=== PATIENT | female | born 1940 | race Caucasian/White ===

== ENCOUNTER 2017-03-13 09:58 | Outpatient (CLI) | payer MEDICARE, BC ==
--- NOTE | 2017-03-13 11:55 | RAD ---
CHEST TWO VIEWS: History: Chest pain. Comparison: 09-27-13 FINDINGS: Since the previous comparison there has been cardiac surgery. No focal airspace consolidation, pneumo thorax, or effusion. Mild degenerative changes of the shoulder joints. Right upper quadrant chest all clips. IMPRESSION: No acute intrathoracic abnormality. POS: [facility]
== END 2017-03-13 09:59 | disposition home or self-care (01) ==
LOC: RAD 09:58
PROVIDERS: ATTEND Internal Medicine Cardiovascular Disease
DX: I25.119 Atherosclerotic heart disease of native coronary artery with unspecified angina pectoris (principal); R07.9 Chest pain, unspecified; Z95.1 Presence of aortocoronary bypass graft
CPT/HCPCS: 71020

== ENCOUNTER 2017-03-23 11:31 | Observation (INO) | payer MEDICARE, BC ==
--- NOTE | 2017-03-23 12:26 | RAD ---
PORTABLE UPRIGHT FRONTAL CHEST RADIOGRAPH: 03/23/2017 HISTORY: Intermittent chest pain. COMPARISON: 09/27/2013 and 03/13/2017 FINDINGS: Stable heart and mediastinal contours. Midline sternotomy wires and mediastinal clips are present. No pneumothorax or pleural fluid. No focal consolidation or alveolar edema. Mild elevation of left hemidiaphragm, stable. IMPRESSION: No acute findings. Stable appearance of the chest. POS: [facility]
[2017-03-23 12:41] LABS: #Eosinphils 0.2 thou/uL (0.0-0.7); #Lymphocytes 1.1 thou/uL (1.20-3.40); #Monocytes 0.4 thou/uL (0.11-0.59); #Neutrophils 2.7 thou/uL (1.40-6.50); %Basophils 0.6 % (0.0-1.0); %Eosinophils 4.3 % (0.0-10.0); %Lymphocytes 24.8 % (21.0-51.0); %Monocytes 9.5 % (0.0-10.0); %Neutrophils 60.7 % (42.0-75.0); Hemoglobin 14.1 g/dL (12.0-16.0); Mean Corpuscular HGB CONC 33.6 g/dL (32.0-36.0); Mean Corpuscular Hemoglobin 34.5 pg (27.0-31.0); Mean Platelet Volume 6.9 fL (7.4-10.4); Platelet Count 210 thou/uL (130-400); RBC Distribution Width 13.2 % (11.5-14.5); Red Blood Cell (RBC) Count 4.09 mill/uL (4.20-5.40); White Blood Cell (WBC) Count 4.5 thou/uL (4.8-10.8)
[2017-03-23 13:01] LABS: ALT (SGPT) 13 U/L (8-55); AST (SGOT) 16 U/L (5-34); Albumin 3.7 g/dL (3.4-4.8); Alkaline Phosphatase 54 U/L (40-150); Anion Gap 10 mmol/L (10-20); BUN (Urea Nitrogen) 22 mg/dL (9.8-20.1); Bilirubin, Total 0.8 mg/dL (0.2-1.2); CK (CPK) 34 U/L (29-168); Calc. Creatinine Clearance 0 mL/min (70-130); Calcium 9.1 mg/dL (7.8-10.44); Carbon Dioxide 30 mmol/L (23-31); Chloride 103 mmol/L (98-107); Estimated GFR-MDRD 66; Globulin 2.7 g/dL (2.4-3.5); Glucose 87 mg/dL (83-110); Lipase 44 U/L (8-78); Potassium 4.2 mmol/L (3.5-5.1); Protein, Total 6.4 g/dL (6.0-8.3); Sodium 139 mmol/L (136-145)
[2017-03-23 13:05] LABS: Troponin I Less than 0.010 ng/mL (< 0.028)
[2017-03-23] MEDS ORDERED: Nitroglycerin 2% Ointment 1 INCH/1 GM Packet ONE (13:13)
[2017-03-23] MEDS ORDERED: Morphine 4 MG/ML VIAL ONE (13:15)
[2017-03-23] MEDS ORDERED: Acetaminophen 325 MG TAB PO PRN (15:38)
[2017-03-23 15:55] LABS: Troponin I Less than 0.010 ng/mL (< 0.028)
--- NOTE | 2017-03-23 17:10 | HP ---
PRIMARY CARE PROVIDER: Ethan Gardner M.D. CHIEF COMPLAINT: Chest pain. HISTORY OF PRESENT ILLNESS: Mr. Villafana is a pleasant 76-year-old lady who was seen at [facility] on 03/23/2017. She reports that she developed left-sided chest pain this morning. The pain was tightness like, 9/10 at its worst, radiating to upper back, neck, jawline and left arm, accompanied by nausea and shortne ss of breath. No known aggravating or relieving factors. She reports that she had recurrence of the pain during the daytime as well, not as severe. REVIEW OF SYSTEMS: The following complete review of systems was negative, unless otherwise mentioned in the HPI or below: Constitutional: Weight loss or gain, sense of well-being, ability to conduct usual activities, exerc ise tolerance. Skin/Breast: Rash, itching, changes in hair growth or loss, nail changes, breast lumps, tenderness, swelling, nipple discharge. Eyes: Vision, double vision, tearing, blind spots, pain. ENT/Mouth: Headaches (location, time of onset, duration, precipitating factors), vertigo, lightheade dness, injury. Vision, double vision, tearing, blind spots, pain, nose bleeding, colds, obstruction, discharge, dental difficulties, gingival bleeding, dentures, neck stiffness, pain, tenderness, masses in thyroid or other areas. Cardiovascular: Precordial pain, substernal distress, palpitations, syncope, dyspnea on exertion, or thopnea, nocturnal paroxysmal dyspnea, edema, cyanosis, hypertension, heart murmurs, varicosities, ph lebitis, claudication. Respiratory: Pain, shortness of breath, wheezing, stridor, cough, hemoptysis, fever or night sweats Gastrointestinal: Poor appetite, dysphagia, indigestion, abdominal pain, heartburn, eructation, naus ea, vomiting, hematemesis, jaundice, constipation, or diarrhea, abnormal stools (joe-colored, tarry, bloody, greasy, foul smelling), flatulence, hemorrhoids, recent changes in bowel habits. Genitourinary: Urgency, frequency, dysuria, nocturia, hematuria, polyuria, oliguria, unusual (or wilton nge in) color of urine, stones, hesitancy, change in size of stream, dribbling, acute retention or in continence, libido, potency. Musculoskeletal: Pain, swelling, redness or heat of muscles or joints, limitation, of motion, muscul ar weakness, atrophy, cramps. Neurologic/Psychiatric: Convulsions, paralyses, tremor, incoordination, paraesthesias, difficulties with memory of speech, sensory or motor disturbances, or muscular coordination (ataxia, tremor), emot ional problems, anxiety, depression, previous psychiatric care, unusual perceptions, hallucinations. Allergy/Immunologic: Skin rash, anemia, bleeding tendency, polydipsia, polyuria, intolerance to heat or cold. PAST MEDICAL HISTORY: Significant for coronary artery disease, status post coronary artery bypass gr aft in 03/2016. She reports having 3 coronary angiograms in 2017 and is known to have a vascular les ion that she is not amenable to correction with PCI. She also has a history of dyslipidemia. Rheuma toid arthritis. PAST SURGICAL HISTORY: Significant for coronary artery bypass graft x3, kidney stone removal, back s urgery, right wrist surgery, cataract surgery, cholecystectomy, hysterectomy, and tonsillectomy. SOCIAL HISTORY: The patient denies tobacco use. She reports having a glass of wine with dinner ever y night. FAMILY HISTORY: Significant for coronary artery disease in her mother. ALLERGIES: LEFLUNOMIDE. CURRENT MEDICATIONS: Duloxetine 30 mg daily, potassium chloride 10 mEq daily, Plavix 75 mg daily, Ra nexa 1000 mg 2 times a day, furosemide 40 mg 2 times a day, carvedilol 3.125 mg 2 times a day, Restas is eyedrops, gabapentin 300 mg 2 times a day, folic acid 1 mg at bedtime, atorvastatin 40 mg at bedti me, aspirin 81 mg daily, amlodipine 2.5 mg daily, Nexium 40 mg daily, methotrexate 25 mg every week, nitroglycerin p.r.n., Tessalon Perles p.r.n. CODE STATUS: I discussed her code status. She is FULL CODE. PHYSICAL EXAMINATION: GENERAL: On examination, Ms. Villafana is awake and alert, not in acute distress. VITAL SIGNS: Blood pressure is 120/60, pulse is 61. She is breathing at rate of 12 and saturating 9 5% on room air. She is afebrile. EYES: No scleral icterus. No conjunctival pallor. ENT: Moist mucosal membranes. No oropharyngeal erythema or exudates. NECK: Supple, nontender, normal range of movement. Trachea is midline. RESPIRATORY: Accessory muscles of breathing are not active. Chest wall movements are symmetric bila terally. LUNGS: Clear to auscultation without wheeze, rhonchi or crepitations. CARDIOVASCULAR: S1 and S2 are heard, regular. LUNGS: Peripheral pulses are palpable. No carotid bruit, no pericardial rub. ABDOMEN: Soft, nontender. Bowel sounds heard, no hepatomegaly, no splenomegaly. NEUROLOGIC: Cranial nerves II-XII are intact. Deep tendon reflexes are 2+. MUSCULOSKELETAL: Power is 5/5 in all 4 extremities. Normal range of movement at all major extremity joints. SKIN: No rashes or subcutaneous nodules. LYMPHATIC: No cervical lymphadenopathy. PSYCHIATRIC: Normal mood, normal affect, patient is oriented to person, place, and time. IMAGING DATA AND LABORATORY DATA: Ms. Villafana's labs and investigations were reviewed. I reviewed her electrocardiogram, which shows normal sinus rhythm, no ST changes to suggest an acute coronary syndr ome. I also reviewed her chest x-ray, which does not show any pulmonary infiltrates. Laboratory inv estigations show leukopenia with 4,500 white cells, normal hemoglobin, normal platelet count, mildly elevated blood urea nitrogen of 22, otherwise unremarkable comprehensive metabolic profile, mildly el evated BNP of 118, troponin I that is negative x2 and normal lipase. ASSESSMENT AND PLAN: Ms. Villafana is a pleasant 76-year-old lady who was seen at [facility]. Her problem list includes: 1. Chest pain: She is known to have coronary artery lesions that are not amenable to PCI. Emergenc y room physician has discussed her case with her director, who has kindly seen the patient in the emergency room. The recommendations are to check total of 3 sets of troponin and if negative, mikey lozada can be discharged home to follow up with her primary care physician. The third troponin I is pend ing. 2. Dyslipidemia: Continue statin. 3. Leukopenia: Etiology is unclear. Her baseline white count is not known at this time. This coul d be secondary to methotrexate use. She needs to follow up with her primary care physician. 4. Elevated blood urea nitrogen: Etiology unclear. Patient is not clinically dehydrated. This dada l need to be followed up as outpatient. Many thanks for allowing me to participate in your patient's care. Please feel free to contact me wi th any questions or concerns. LEVEL OF RISK: High. LEVEL OF COMPLEXITY: High.
[2017-03-23 19:09] LABS: Troponin I 0.016 ng/mL (< 0.028)
--- NOTE | 2017-03-23 22:18 | CON ---
DATE OF CONSULTATION: 03/23/2017 REASON FOR CONSULTATION: Chest pain. HISTORY OF PRESENT ILLNESS: Ms. Villafana is a very pleasant 76-year-old white female who comes to the [facility] for chest pain. She has significant history of coronary artery disease last year in 03/2016. She came in for increased shortness of breath which is the way she feels with her angina, shortness of breath with exertion. She underwent heart catheterization which showed that she had an occluded RCA and severe left main disease and at that time, she actually presented to the hospital for an IN. She had her left circumflex balloon opened and sent to bypass surgery emergently. She received thre e grafts to the left side. No graft was placed in right coronary artery as it was very small and unr eachable. She continued to have chest pain. She was seeing Dr. Roger at that time and because of t he possibility for having angina from the right artery, she had a repeat catheterization that showed that all her vein grafts were widely patent and attempt at CT of the RCA was done without success. S he was maxed out on all her anti-anginals with really no change in any of her symptoms. She came to see me about a week and a half to 2 weeks ago, she was looking for a different opinion as far as her chest pain is concerned. On my evaluation, my thought is that the way she feels her angina is with s hortness of breath with exertion which is what she felt before her bypass. I also feel that most of her pain is related to chest wall pain that she is exquisitely tender at any palpation soft or hard o n her chest wall and this may just all be related to neuralgia post-bypass surgery. She was started on gabapentin 300 mg twice a day. She states that her pain changed a little bit, it was not really s ignificantly different than what has been before. She usually has episodes where the pain slowly terrance s up and gets to a point where she needs to come in, this time it just hit her at once, she says it i s exactly the same pain that she had in the past, however, without the ramping up. She came in, so f ar, she has been ruled out with 1 set of enzymes and an unremarkable EKG. She currently has no more pain. She is quite comfortable with very stable vital signs. PAST MEDICAL HISTORY: 1. Coronary artery disease as above. 2. Hyperlipidemia. 3. Rheumatoid arthritis. PAST SURGICAL HISTORY: 1. Coronary artery bypass grafting x3 as above. 2. Attempted PCI of the RCA and successful. OUTPATIENT MEDICATIONS: 1. Duloxetine 30 mg a day. 2. Plavix 75 mg a day. 3. Ranexa 1000 mg b.i.d. 4. Furosemide 40 mg a day. 5. Carvedilol 3.125 mg b.i.d. 6. 5 mg b.i.d. 7. Folic acid daily. 8. Atorvastatin 40 mg at bedtime. 9. Aspirin 81 a day. 10. Amlodipine 2.5 mg a day. 11. Nexium 40 mg a day. 12. Methotrexate 25 mg injection three times a week. 13. Gabapentin 300 mg twice a day. ALLERGIES: No known drug allergies. SOCIAL HISTORY: No alcohol, tobacco or drugs. FAMILY HISTORY: Noncontributory. REVIEW OF SYSTEMS: A 12-point review of systems was done and is all negative unless stated in the hi story of present illness. PHYSICAL EXAMINATION: VITAL SIGNS: Temperature 97.2, pulse 68, respiration rate 16, satting 98% on room air, blood pressur e 122/68. GENERAL: Awake, alert, oriented x3, in no distress. HEENT: Normocephalic, atraumatic. NECK: Supple. LUNGS: Clear to auscultation. CARDIOVASCULAR: S1, S2, no S3 or S4, no murmurs or rubs. ABDOMEN: Soft, positive bowel sounds. EXTREMITIES: No edema. SKIN: Warm and dry. LABORATORY WORK: Reviewed. CBC shows a white count of 4.5, hemoglobin of 14, platelet count of 210. Chemistries are unremarkable except for BUN of 22, creatinine 0.83, troponin is normal x1 and less than assay actually, and a BNP of 118, albumin of 3.7. Lipase was 44. EKG is unremarkable. ASSESSMENT AND PLAN: 1. Chest pain: Most likely continuation of her chest wall pain. She will get completely ruled out with two more sets of enzymes. If these are negative, she should be able to be discharged home. I w ill plan on increasing her gabapentin to 600 mg 3 times a day from 300 twice a day. I already gave a prescription for this. Her will go and get at a local pharmacy. 2. Coronary artery disease: Unlikely this is an acute coronary syndrome. As above. Thank you for letting us to participate in the care of your patient. We will sign off. She has a scheduled followup appointment with us in 04/14/2016. We will keep this.
--- NOTE | 2017-03-24 00:48 | DIS ---
DATE OF ADMISSION: 03/23/2017 DATE OF DISCHARGE: 03/23/2017 PRIMARY CARE PROVIDER: Dr. Ethan Gardner. DISCHARGE DIAGNOSIS: Chest pain. HOSPITAL COURSE: Ms. Villafana is a pleasant 76-year-old lady, who was admitted to [facility] on observation status on 03/23/2017. She was seen by Cardiology Service. It was advise d that 3 sets of cardiac enzymes be checked and if normal, all 3 troponins were normal. Her chest pa in resolved as well. She is being discharged home in a stable condition and advised to follow up wit h her primary care provider. She is advised to resume her preadmission home medications. Many thanks for allowing me to participate in your patient's care. Please feel free to contact me wi th any questions or concerns. DISCHARGE DESTINATION: Home.
--- NOTE | 2017-03-24 13:27 | EKG ---
Test Reason : CHEST PAIN Blood Pressure : / mmHG Vent. Rate : 060 BPM Atrial Rate : 060 BPM P-R Int : 154 ms QRS Dur : 096 ms QT Int : 448 ms P-R-T Axes : 025 -18 083 degrees QTc Int : 448 ms Normal sinus rhythm Inferior infarct , age undetermined Abnormal ECG Confirmed by DYLAN RAM ([id number]), multimedia editor JELENA RAMEY ([id number]) on 03/24/2017 1:27:15 PM Referred By: Confirmed By:DYLAN RAM
== END 2017-03-23 20:07 | disposition home or self-care (01) ==
LOC: ERS 11:31 → ERHOLD 15:00
PROVIDERS: ADMIT Internal Medicine; ATTEND Internal Medicine
DX: R07.89 Other chest pain (principal); I25.10 Atherosclerotic heart disease of native coronary artery without angina pectoris; E78.5 Hyperlipidemia, unspecified; D72.819 Decreased white blood cell count, unspecified; R79.89 Other specified abnormal findings of blood chemistry; Z88.8 Allergy status to other drugs, medicaments and biological substances; Z79.899 Other long term (current) drug therapy; Z95.1 Presence of aortocoronary bypass graft; Z90.49 Acquired absence of other specified parts of digestive tract; Z98.890 Other specified postprocedural states; Z82.49 Family history of ischemic heart disease and other diseases of the circulatory system
CPT/HCPCS: 36415; 71010; 80053; 82553; 83690; 83880; 84484; 85025; 93005; 94760; 96374; J2270

== ENCOUNTER 2017-06-01 08:45 | Outpatient (CLI) | payer MEDICARE, BC ==
--- NOTE | 2017-06-02 11:38 | NM ---
NUCLEAR MEDICINE VIABILITY STUDY OF THE HEART: HISTORY: This is a 76-year-old female with prior myocardial infarction. Evaluate for viability of the myocard ium. FINDINGS: A rest study was performed. Images were taken at 15 minutes after injection of radiopharmaceutical a nd at 24 hours, to evaluate for redistribution of the radiopharmaceutical, to suggest viability. There is decreased uptake of the radiopharmaceutical along the lateral wall, consistent with a prior area of myocardial infarction. No significant redistribution of the radiopharmaceutical is seen in t his location on the 24-hour images. IMPRESSION: The lateral wall defect is secondary to prior myocardial infarction. No significant redistribution o f the radiopharmaceutical is seen to suggest viability of the tissue in this lateral wall. POS: [facility]
== END 2017-06-01 08:46 | disposition home or self-care (01) ==
LOC: NM 08:45
PROVIDERS: ATTEND Internal Medicine Cardiovascular Disease
DX: I25.119 Atherosclerotic heart disease of native coronary artery with unspecified angina pectoris (principal); I25.2 Old myocardial infarction; Z95.1 Presence of aortocoronary bypass graft
CPT/HCPCS: 78466; A9505

== ENCOUNTER 2017-07-30 04:35 | Inpatient (IN) | payer MEDICARE, BC ==
[2017-07-30 06:57] VITALS: BMI 31.4
[2017-07-30] MEDS ORDERED: Ondansetron HCl/PF 4 MG/2 ML Vial IVP PRN (07:48)
[2017-07-30] MEDS ORDERED: HYDROcodone/Acetaminophen 5/325 mg Tablet PO PRN (07:48)
[2017-07-30] MEDS ORDERED: Acetaminophen 325 MG TAB PO PRN (07:48)
[2017-07-30] MEDS ORDERED: Nitroglycerin 0.4 MG TAB (25 Tab Bottle) PO PRN (07:48)
[2017-07-30] MEDS ORDERED: Ondansetron ODT 4 MG TAB PO PRN (07:48)
[2017-07-30] MEDS ORDERED: Sodium Chloride 0.9% 500 ML IV STA (07:51)
[2017-07-30] MEDS ORDERED: Aspirin 325 MG TAB PO SCH (08:00)
[2017-07-30] MEDS ORDERED: Sodium Chloride 0.9% 1,000 ML IV SCH (08:00)
[2017-07-30] MEDS: Enoxaparin Sodium 40 MG/0.4 ML SYRINGE SC SCH (08:14)
[2017-07-30] MEDS: Famotidine 20 MG TAB PO SCH ×2 (08:15→20:58)
[2017-07-30] MEDS: Docusate 100 MG CAP PO SCH ×2 (08:15→20:58)
[2017-07-30 08:25] LABS: Troponin I Less than 0.010 ng/mL (< 0.028)
[2017-07-30 09:19] LABS: #Eosinphils 0.1 thou/uL (0.0-0.7); #Lymphocytes 0.9 thou/uL (1.20-3.40); #Monocytes 0.3 thou/uL (0.11-0.59); #Neutrophils 2.6 thou/uL (1.40-6.50); %Basophils 0.4 % (0.0-1.0); %Eosinophils 3.3 % (0.0-10.0); %Lymphocytes 22.1 % (21.0-51.0); %Monocytes 7.1 % (0.0-10.0); %Neutrophils 67.1 % (42.0-75.0); Hemoglobin 12.7 g/dL (12.0-16.0); Mean Corpuscular Hemoglobin 33.6 pg (27.0-31.0); Mean Corpuscular Volume 98.9 fl (81.0-99.0); Mean Platelet Volume 7.1 fL (7.4-10.4); Platelet Count 150 thou/uL (130-400); RBC Distribution Width 11.8 % (11.5-14.5); Red Blood Cell (RBC) Count 3.77 mill/uL (4.20-5.40); White Blood Cell (WBC) Count 3.9 thou/uL (4.8-10.8)
[2017-07-30 09:36] LABS: ALT (SGPT) 12 U/L (8-55); AST (SGOT) 15 U/L (5-34); Albumin 3.4 g/dL (3.4-4.8); Alkaline Phosphatase 47 U/L (40-150); Anion Gap 10 mmol/L (10-20); BUN (Urea Nitrogen) 15 mg/dL (9.8-20.1); Bilirubin, Total 0.6 mg/dL (0.2-1.2); Calc. Creatinine Clearance 83 mL/min (70-130); Calcium 8.6 mg/dL (7.8-10.44); Carbon Dioxide 28 mmol/L (23-31); Chloride 104 mmol/L (98-107); Estimated GFR-MDRD 80; Globulin 2.3 g/dL (2.4-3.5); Glucose 115 mg/dL (83-110); Potassium 3.6 mmol/L (3.5-5.1); Protein, Total 5.7 g/dL (6.0-8.3); Sodium 138 mmol/L (136-145)
[2017-07-30] MEDS: Aspirin 325 MG TAB PO SCH (10:23)
--- NOTE | 2017-07-30 10:37 | HP ---
DATE OF ADMISSION: 07/30/2017 CHIEF COMPLAINT: Chest pain. HISTORY OF PRESENT ILLNESS: This is a 76-year-old white female with a known history of coronary zita ry disease with a CABG done in 2016. The patient has been closely evaluated closely followed up by Edgar Cheatham. Recently the patient had a stress test at outpatient facility showing old ischemia. She was in her usual state of health today. At around 10:30 in the evening, she was watching television. She developed a sudden onset of chest pain and is onset of chest pain radiating to the left shoulde r and radiating down the arm. The pain was associated with sweating and palpitations. She denied mixon ving any nausea, no vomiting, no dizziness. She has been suffering with some chest wall pain for the past few weeks and also had a 2-D echo done as outpatient at Dr. Cheatham's office showing an ejection fraction of 31%. Dr. Cheatham was planning for electrophysiology evaluation for a defibrillator. As the chest pain was getting worse she decided to go to the nearby ER at [place] and from there she was transferred to [place] for further evaluation. The patient is seen on the floor. She was alert and oriented, did not appear to be in acute distress. She continues to have on and off chest pain. The chest pain is in the left precordium as stated above, which lasts for 15-20 minutes and is 7/10 in intensity, radiating to the left shoulder. PAST MEDICAL HISTORY: 1. CABG, history of coronary artery disease. 2. Hyperlipidemia. 3. Hypertension. PAST SURGICAL HISTORY: 1. Significant for coronary artery disease, bypass graft. 2. Kidney stone removal. 3. Back surgeries, multiple back surgeries in the past. 4. Right wrist surgery. 5. Cataract surgery. 6. History of cholecystectomy. 7. Hysterectomy. 8. Tonsillectomy. SOCIAL HISTORY: The patient denies smoking. The patient does drink a glass of wine every day at din ner. FAMILY HISTORY: Significant for coronary artery disease. ALLERGIES: LEFLUNOMIDE. HOME MEDICATIONS: 1. Humira. 2. Amlodipine 2.5 mg at bedtime. 3. Aspirin 81 mg daily. 4. Atorvastatin 40 mg daily. 5. Coreg 3.125 mg daily. 6. Plavix 75 mg daily. 7. Lasix 40 mg p.o. b.i.d. 8. ____ 5 mg p.o. b.i.d. 9. Ranolazine 1000 mg p.o. b.i.d. 10. Ranexa. REVIEW OF SYSTEMS: All 12 systems reviewed with the patient thoroughly and found to be negative. It is ten systems reviewed, [employer], respiratory, GI, . Constitutional: Weight loss or gain, ability to conduct usual activities. Skin: Rash, itching. Eyes: Double vision, pain. ENT/Mouth: Nose bleeding, neck stiffness, pain, tenderness. Cardiovascular: Palpitations, dyspnea on exertion, orthopnea. Respiratory: Shortness of breath, wheezing, cough, hemoptysis, fever or night sweats. Gastrointestinal: Poor appetite, abdominal pain, heartburn, nausea, vomiting, constipation, or diarrhea. Genitourinary: Urgency, frequency, dysuria, nocturia. Musculoskeletal: Pain, swelling. Neurologic/Psychiatric: Anxiety, depression. Allergy/Immunologic: Skin rash, bleeding tendency. PHYSICAL EXAMINATION: VITAL SIGNS: Blood pressures are 97/67, heart rate is 58, respiratory rate 16, saturation 98% on shanique m air. GENERAL: The patient is moderately built, in no acute distress at this time, alert, oriented x3. HEENT: Atraumatic, normocephalic. PERRLA. Extraocular muscles were intact. Oral mucosa is pink an d moist. CARDIOVASCULAR: S1, S2 normal. No murmurs, rubs or gallops. LUNGS: Bilateral air entry was equal. No wheezing, no crackles. ABDOMEN: Soft and nontender. No guarding or rebound tenderness. Bowel sounds normal. MUSCULOSKELETAL: No calf tenderness. No pedal edema. No joint tenderness, no joint swelling. SKIN: No cyanosis, no erythema, no rash, no pallor. NEUROLOGIC: Cranial nerves II through XII are intact. No focal deficits were noted. PSYCHIATRIC: No symptoms. There are no signs of abbe. LABORATORY DATA: WBC 3.1, hemoglobin is 12.7, hematocrit 37.3, platelets 150. Sodium 138, potassium 3.6, chloride 112, bicarbonate 28, BUN 15, creatinine 0.7. ASSESSMENT AND PLAN: 1. Acute chest pain, rule out coronary artery disease. 2. History of congestive heart failure with low ejection fraction. 3. Hypotension. 4. Bradycardia. 5. Hypertension. 6. Hyperlipidemia. 7. History of coronary artery bypass graft with coronary artery disease. PLAN: 1. The plan is to closely monitor this patient. We will consult Cardiology at this time. The patie nt had a recent stress test which was negative as an outpatient and had a 2D echo which was having lo w EF as per the patient, no records are available at this time. The patient sees Dr. Cheatham. We dada l continue the patient on the aspirin and Plavix and continue on Ranexa. We will hold off on the bet a bj as the patient's heart rate is 58 at this time, and follow with the Cardiology recommendati ons. 2. The patient has low blood pressures. We will do bolus of 500 mL at this time. We will closely m onitor. Avoid any fluid overload. 3. The patient has history of hypertension. Will hold off on the blood pressure medications because of the low blood pressures at this time, we will hold off on the Lasix at this time. 4. Hyperlipidemia. Will continue the patient's home medications. 5. Deep venous thrombosis prophylaxis is Lovenox. ADMITTING PHYSICIAN: Dr. Partha Reese. I spent 75 minutes with this patient.
--- NOTE | 2017-07-30 19:53 | CON ---
DATE OF CONSULTATION: 07/30/2017 HISTORY OF PRESENT ILLNESS: The patient is an unfortunate 76-year-old woman who presents with recurrent chest discomfort. The patient has a long history of coronary artery disease. She has previously undergone coronary bypass surgery x3 in 2016. She has subsequently been admitted on several occasions with chest discomfort. She underwent a followup catheterization in 12/2016. She had patent coronary bypass grafts. The right coronary artery was not amenable to intervention. The patient has been admitted on several occasions with chest pain. She underwent a Cardiolite stress test in 05/2017 which revealed her to have lateral wall defect with no evidence of reversible ischemia. The patient also underwent a recent echocardiogram, which revealed moderate decrease in left ventricular ejection fraction 30%-35%. The patient was being considered for a LifeVest versus an EP evaluation. The patient states that she has a long history of chest discomfort. She developed recurrent chest discomfort and use several nitroglycerins with eventual resolution of chest pain. The patient had further chest discomfort this morning which required nitroglycerinfor relief. PAST MEDICAL HISTORY: 1. Coronary artery disease. 2. Ischemic cardiomyopathy. 3. Hypertension. 4. Hyperlipidemia. 5. Rheumatoid arthritis. PAST SURGICAL HISTORY: Coronary bypass surgery, cataract surgery, cholecystectomy, kidney stone, tonsillectomy, hysterectomy. SOCIAL HISTORY: Nonsmoker. FAMILY HISTORY: Positive family history of heart disease. MEDICATIONS ON ADMISSION: Ranexa 1000 b.i.d., Lasix 40 daily, Coreg 3.125 b.i.d., Lipitor 40 at bedtime, aspirin 81 daily, Nexium 40 daily, amlodipine 2.5 daily, Lyrica 50 at bedtime, and Plavix 75 daily. REVIEW OF SYSTEMS: Ten-point system otherwise unremarkable. No history of easy bruising or bleeding. FAMILY HISTORY: Positive family history of heart disease. PHYSICAL EXAMINATION: GENERAL APPEARANCE: Obese woman in no acute distress. VITAL SIGNS: Blood pressure was 122/71. NECK: No jugular venous distention. LUNGS: Clear to auscultation. HEART: Regular rate and rhythm, normal S1, S2, no murmurs. ABDOMEN: Distended. EXTREMITIES: Showed no edema. SKIN: Warm and dry. NEUROLOGIC: Nonfocal. VASCULAR: Radial pulses are 2+. LABORATORY DATA AND IMAGING DATA: White blood count 3.9, hemoglobin 12.7, hematocrit 37.3, platelets 150. Sodium is 138, potassium 3.6, chloride 104, bicarbonate 28, BUN 15, creatinine is 0.71, glucose 115. Troponin less than 0.01. BNP was 51. White blood count 3.9, hemoglobin 12.7, hematocrit 37.3 and platelets are 150. Her EKG revealed her to have normal sinus rhythm with Q- waves suggestive of previous inferior infarct. IMPRESSION: 1. Chest pain suggestive of angina. 2. History of coronary bypass surgery x3 with a lesion not amenable to revascularization. 3. Hypertension. 4. Dyslipidemia. 5. Bradycardia. 6. History of cardiomyopathy. This patient presents with chest pain suggestive of angina. Cardiac enzymes are unremarkable. There are no acute EKG changes. From a cardiac standpoint, her medications will be adjusted. Would consider increasing the dose of her amlodipine. Further recommendation we will follow from Dr. Cheatham. LUIS
[2017-07-30] MEDS: Ivabradine 5 MG TAB PO SCH (20:57)
[2017-07-30] MEDS: cycloSPORINE 0.05% Ophthalmic Droperette EA EYE SCH (20:58)
[2017-07-30] MEDS: Carvedilol 3.125 MG TAB PO SCH (20:59)
[2017-07-30] MEDS ORDERED: Non-Formulary Item 1 EACH (Ranolazine [Ranexa] 1,000 MG) PO SCH (21:00)
[2017-07-30] MEDS ORDERED: Atorvastatin Calcium 40 MG TAB PO SCH ×2 (21:00)
[2017-07-30] MEDS ORDERED: Non-Formulary Item 1 EACH (Amlodipine Besylate [Norvasc] 2.5 MG) PO SCH (21:00)
[2017-07-30] MEDS ORDERED: Amlodipine 5 MG TAB PO SCH (21:00)
--- NOTE | 2017-07-30 22:35 | CON ---
DATE OF CONSULTATION: 07/30/2017 ELECTROPHYSIOLOGY CONSULTATION REPORT: REFERRING PHYSICIAN: Dr. Garza and Dr. Cheatham. Seeing Ms. Villafana at our [facility] telemetry floor as an electrophysiology end user consultant. Her problems are: 1. Chronic systolic congestive heart failure with ischemic cardiomyopathy. A. Prior history of myocardial infarction, coronary artery disease as well as bypass surgery in the past. B. A viability nuclear scan in 05/2017 shows lateral wall defect with prior myocardial infarction no merna distribution to suggest viability. C. Recent echocardiogram with LVEF 35% in 07/[address] Cheatham's office. D. Left heart catheterization from 12/22/2016 shows 50% left main, complete mid LAD occlusion, 100% proximal circumflex and 100% RCA occlusion, patent SVG to OM to diagonal, ROSARIO to LAD was also patent . 2. Chronic chest pains, atypical. 3. Coronary artery risk factors. 4. Hypertension. B. Hyperlipidemia. ALLERGIES: LEFLUNOMIDE. MEDICATIONS: At home include Humira, amlodipine, aspirin, atorvastatin, Coreg, Plavix, Lasix, ranola zine and Ranexa. SUBJECTIVE: Ms. Villafana is here, admitted with chest pains, they are atypical, although she has a chronic specialist josee chest pressure sensation. At this time, she also experienced sudden onset of chest tightness and sharp pains radiating to the shoulder and then to the arm. This was associated with sweatiness and palpitations. She has not had any nausea, vomiting or dizziness. She had no stroke-like symptoms, n o neurological deficits. No PND or orthopnea is noted at this time, although she does get some dyspn ea on ambulation. She is more pronounced for the last couple of months. Rest of the twelve point sy stem otherwise unremarkable. PAST MEDICAL HISTORY: As above. Previously followed by Dr. Roger, but since February, she is follo wed by Dr. Cheatham. PAST SURGICAL HISTORY: Kidney stone removal, back surgeries, right wrist surgery, cataract surgery, cholecystectomy, hysterectomy, and tonsillectomy is also noted. SOCIAL HISTORY: The patient is smoking. Denies ETOH or drug abuse. Does drink alcohol socially. FAMILY HISTORY: Significant for coronary artery disease. OBJECTIVE DATA: VITAL SIGNS: Blood pressure 122/71, heart rate 62, respirations 16, temperature 97.5 degrees Fahrenh eit. PHYSICAL EXAMINATION: GENERAL: This is an alert and oriented woman, in no apparent distress. NECK: Supple. Jugular veins not distended. CHEST: Coarse without crackles. CARDIOVASCULAR: Heart sounds are regular to rate and rhythm. No murmur or gallop. ABDOMEN: Benign. Bowel sounds positive. EXTREMITIES: Lower extremities without edema, clubbing or cyanosis. Pulses are adequate. NEUROLOGIC: The patient is nonfocal. MUSCULOSKELETAL: Without joint swelling or deformities. SKIN: Without rash. DATABASE: The EKGs reviewed revealing sinus rhythm, rate of 59 beats per minute. The QRS duration i s 102 milliseconds. There is Q-wave seen inferiorly. LABORATORY DATA: White cell count is 3.9, hemoglobin 12.7, platelet count is 150. Sodium 138, potas sium 3.6, BUN is 15, creatinine 0.7, esterase 15 and 12. ASSESSMENT AND PLAN: Ms. Villafana is a pleasant 76-year-old woman who has history of coronary artery di sease with prior bypass surgery and likely infarction. Her LVEF now has worsened again just like in the past. She was noted to have moderate to severe LVEF, but transiently improvement when was seen, but now LVEF again 30-35% range as per Dr. Cheatham's recent office echo. Although currently she is not experiencing severe symptoms suggesting of ventricular arrhythmias, but she nevertheless does carry a risk for future malignant ventricular arrhythmias, per guidelines it w ould be reasonable to proceed with ICD implantation after her clinical stabilization. I suspect this can be done as an outpatient. We did discuss pros and cons about it. She understands the chance of infection, bleeding, pneumothorax, tamponade, lead dislodgement, device malfunctions recalls, she is willing to proceed. We will make arrangements to have this happen again as an outpatient. Thank you again for allowing me to participate in the care of this patient.
[2017-07-31 05:28] LABS: #Eosinphils 0.1 thou/uL (0.0-0.7); #Lymphocytes 0.9 thou/uL (1.20-3.40); #Monocytes 0.3 thou/uL (0.11-0.59); #Neutrophils 2.2 thou/uL (1.40-6.50); %Basophils 0.8 % (0.0-1.0); %Eosinophils 4.1 % (0.0-10.0); Hemoglobin 12.9 g/dL (12.0-16.0); Mean Corpuscular HGB CONC 33.9 g/dL (32.0-36.0); Mean Corpuscular Hemoglobin 33.6 pg (27.0-31.0); Mean Corpuscular Volume 99.1 fl (81.0-99.0); Mean Platelet Volume 6.9 fL (7.4-10.4); Platelet Count 158 thou/uL (130-400); RBC Distribution Width 11.9 % (11.5-14.5); Red Blood Cell (RBC) Count 3.85 mill/uL (4.20-5.40); White Blood Cell (WBC) Count 3.6 thou/uL (4.8-10.8)
[2017-07-31 05:44] LABS: Anion Gap 11 mmol/L (10-20); BUN (Urea Nitrogen) 11 mg/dL (9.8-20.1); Calc. Creatinine Clearance 83 mL/min (70-130); Calcium 8.7 mg/dL (7.8-10.44); Carbon Dioxide 28 mmol/L (23-31); Cardiac Risk 3.6 (Less than 4.5); Chloride 107 mmol/L (98-107); Cholesterol 156 mg/dl (< 200 Desired); Estimated GFR-MDRD 80; Glucose 112 mg/dL (83-110); HDL Cholesterol 43 mg/dL (>60 Neg Risk); LDL Cholesterol, Calculated 69 mg/dL; Potassium 3.7 mmol/L (3.5-5.1); Sodium 142 mmol/L (136-145); Triglycerides 222 mg/dL (Less than 150)
[2017-07-31] MEDS ORDERED: Clopidogrel Bisulfate 75 MG TAB PO SCH (09:00)
[2017-07-31] MEDS: Carvedilol 3.125 MG TAB PO SCH (09:06)
[2017-07-31] MEDS: Aspirin 325 MG TAB PO SCH (09:06)
[2017-07-31] MEDS: Famotidine 20 MG TAB PO SCH (09:07)
[2017-07-31] MEDS: Ivabradine 5 MG TAB PO SCH (09:07)
[2017-07-31] MEDS: Docusate 100 MG CAP PO SCH (09:07)
[2017-07-31] MEDS: Enoxaparin Sodium 40 MG/0.4 ML SYRINGE SC SCH (09:08)
[2017-07-31] MEDS: cycloSPORINE 0.05% Ophthalmic Droperette EA EYE SCH (09:08)
[2017-07-31 11:15] LABS: Troponin I Less than 0.010 ng/mL (< 0.028)
[2017-07-31] MEDS ORDERED: Sucralfate 1 GM/10 ML UDCUP PO SCH (11:30)
[2017-07-31 11:59] VITALS: BP 97/59; TEMP 97.7
--- NOTE | 2017-07-31 15:43 | DIS ---
DATE OF ADMISSION: 07/30/2017 DATE OF DISCHARGE: 07/31/2017 ADMITTING DIAGNOSIS: Acute chest pain. DISCHARGE DIAGNOSIS: Acute chest pain, noncardiac. SECONDARY DIAGNOSES: 1. History of CABG, history of congestive heart failure with low ejection fraction of less than 30%. 2. Hypertension. 3. Hyperlipidemia. CONSULTANTS INVOLVED IN THE CARE: Dr. Judd Mccormick from Electrophysiology and Dr. Garza from Card iology. HISTORY OF PRESENT ILLNESS AND HOSPITAL COURSE: In brief, this is a 76-year-old white female with a known history of coronary artery disease, CABG in 2016 and closely follows up with Dr. Cheatham, who re cently had a stress test showing an old ischemia, but otherwise, the patient was noted to have a low ejection fraction during that time and was planned for outpatient evaluation with Electrophysiology. When the patient developed a sudden onset of chest pain, which is on and off, radiating to the left shoulder, she came in and she had an EKG which was unremarkable and Cardiology has seen the patient a nd suggested there was no evidence of any ischemia at this time, and there was no evidence of any fur ther intervention. They consulted Electrophysiology who planned for outpatient AICD placement. The patient wanted to see Dr. Cheatham but as he was not candle extrusion machine operator, the patient had to be discharged and advi sed to follow up with Dr. Cheatham as outpatient. The patient was stable. On the day of discharge, raul doan had an EKG which did not show any worsening changes from the day of admission and she was given Car afate for possible gastric pain as the patient is on alcohol, wine every day, advised to cut down. PHYSICAL EXAMINATION: On day of discharge. VITAL SIGNS: Blood pressures are 113/70, heart rate is 60, respiratory rate 16, saturation is 98% on room air. GENERAL: The patient is a moderately built, moderately nourished, does not appear in acute distress. CARDIOVASCULAR: S1, S2 normal. No murmurs, rubs or gallops. LUNGS: Bilateral air entry was equal. No wheezing, no crackles. ABDOMEN: Soft, nontender. No guarding. No rebound tenderness. MUSCULOSKELETAL: No calf tenderness. No pedal edema, no joint tenderness, no joint swelling. DISCHARGE MEDICATIONS: 1. Humira. 2. Aspirin 81 mg daily. 3. Dexilant 60 mg p.o. at bedtime. 4. Esomeprazole 40 mg daily. 5. Potassium 10 mEq daily. 6. Lasix 40 mg p.o. b.i.d. 7. Amlodipine 2.5 mg p.o. at bedtime. 8. Atorvastatin 40 mg p.o. daily. 9. Carvedilol 3.125 mg p.o. b.i.d. 10. Plavix 75 mg daily. 11. Ivabradine 5 mg p.o. b.i.d. 12. Ranexa 1000 mg p.o. b.i.d. 13. Restasis. DISCHARGE INSTRUCTIONS: Continue activity as tolerated. Advised to follow up with the primary care physician in 1 week. Advised to follow up with Dr. Cheatham in 1-2 weeks. Advised to follow up with Edgar Mccormick in 1 week. Continue with regular diet, cardiac diet. Continue with activity as tolerated. Advised to return back to the ER if the patient has any persistent chest pains. I spent 35 minutes of this patient on the day of discharge.
--- NOTE | 2017-08-02 08:48 | EKG ---
Test Reason : C/O CHEST PAIN Blood Pressure : / mmHG Vent. Rate : 059 BPM Atrial Rate : 059 BPM P-R Int : 206 ms QRS Dur : 102 ms QT Int : 468 ms P-R-T Axes : 046 -08 094 degrees QTc Int : 463 ms Sinus bradycardia Inferior infarct (cited on or before 12-JUL-2010) Abnormal ECG When compared with ECG of 23-MAR-2017 11:40, No significant change was found Confirmed by RAFFAELE HANSON MD ([id number]) on 08/02/2017 8:47:49 AM Referred By: JORDANA Confirmed By:RAFFAELE HANSON MD
--- NOTE | 2017-08-02 08:53 | EKG ---
Test Reason : Blood Pressure : / mmHG Vent. Rate : 057 BPM Atrial Rate : 057 BPM P-R Int : 178 ms QRS Dur : 102 ms QT Int : 462 ms P-R-T Axes : 045 -09 116 degrees QTc Int : 449 ms Sinus bradycardia Inferior infarct (cited on or before 12-JUL-2010) Abnormal ECG Confirmed by RAFFAELE HANSON MD ([id number]) on 08/02/2017 8:53:16 AM Referred By: JORDANA Confirmed By:RAFFAELE HANSON MD
== END 2017-07-31 13:09 | disposition home or self-care (01) | DRG 313 ==
LOC: 2SE 06:09
PROVIDERS: ADMIT Internal Medicine; ATTEND Internal Medicine
DX: R07.89 Other chest pain (principal); I25.10 Atherosclerotic heart disease of native coronary artery without angina pectoris; I11.0 Hypertensive heart disease with heart failure; I50.22 Chronic systolic (congestive) heart failure; E78.5 Hyperlipidemia, unspecified; Z95.1 Presence of aortocoronary bypass graft; Z79.82 Long term (current) use of aspirin; I25.5 Ischemic cardiomyopathy; I25.2 Old myocardial infarction; Z79.02 Long term (current) use of antithrombotics/antiplatelets; F17.210 Nicotine dependence, cigarettes, uncomplicated
CPT/HCPCS: 36415; 80048; 80053; 80061; 83880; 84484; 85025; 93005; 93010; 94760; A4216; J1650

== ENCOUNTER 2017-08-07 10:44 | Emergency (ER) | payer MEDICARE, BC ==
[2017-08-07 11:18] LABS: #Eosinphils 0.2 thou/uL (0.0-0.7); #Lymphocytes 0.9 thou/uL (1.20-3.40); #Monocytes 0.4 thou/uL (0.11-0.59); %Basophils 0.3 % (0.0-1.0); %Eosinophils 2.9 % (0.0-10.0); %Lymphocytes 15.7 % (21.0-51.0); %Neutrophils 73.2 % (42.0-75.0); Mean Corpuscular HGB CONC 34.1 g/dL (32.0-36.0); Mean Corpuscular Hemoglobin 33.8 pg (27.0-31.0); Mean Corpuscular Volume 99.2 fl (81.0-99.0); Mean Platelet Volume 7.2 fL (7.4-10.4); Platelet Count 194 thou/uL (130-400); RBC Distribution Width 12.1 % (11.5-14.5); Red Blood Cell (RBC) Count 3.84 mill/uL (4.20-5.40); White Blood Cell (WBC) Count 5.5 thou/uL (4.8-10.8)
[2017-08-07 11:28] LABS: ALT (SGPT) 12 U/L (8-55); AST (SGOT) 14 U/L (5-34); Albumin 3.5 g/dL (3.4-4.8); Alkaline Phosphatase 50 U/L (40-150); Anion Gap 14 mmol/L (10-20); BUN (Urea Nitrogen) 20 mg/dL (9.8-20.1); Bilirubin, Total 0.9 mg/dL (0.2-1.2); CK (CPK) 26 U/L (29-168); Calc. Creatinine Clearance 0 mL/min (70-130); Calcium 8.9 mg/dL (7.8-10.44); Carbon Dioxide 22 mmol/L (23-31); Chloride 107 mmol/L (98-107); Estimated GFR-MDRD 81; Globulin 2.5 g/dL (2.4-3.5); Glucose 85 mg/dL (83-110); Potassium 4.1 mmol/L (3.5-5.1); Sodium 139 mmol/L (136-145)
[2017-08-07 11:32] LABS: CKMB 0.8 ng/mL (0-6.6); Troponin I Less than 0.010 ng/mL (< 0.028)
[2017-08-07] MEDS ORDERED: Morphine 4 MG/ML VIAL ONE (11:57)
--- NOTE | 2017-08-07 12:00 | RAD ---
PORTABLE AP CHEST: Date: 08/07/17 HISTORY: Chest pain that started last week. COMPARISON: 03/23/17. FINDINGS: Postsurgical changes related to CABG are noted. Cardiac silhouette is magnified by projection, but st able in size. Vascular calcifications seen in thoracic aorta. Pulmonary vasculature is within normal limits. Lungs are clear. There has been no interval change when compared to the prior exam. IMPRESSION: Stable chest without evidence of an acute cardiopulmonary process. POS: [facility]
[2017-08-07] MEDS ORDERED: Acetaminophen 325 MG TAB PO PRN (14:09)
[2017-08-07] MEDS ORDERED: Nitroglycerin 0.4 MG TAB (25 Tab Bottle) PO PRN (14:09)
[2017-08-07 14:36] LABS: CKMB 0.9 ng/mL (0-6.6); Troponin I Less than 0.010 ng/mL (< 0.028)
[2017-08-07] MEDS ORDERED: Furosemide 40 MG TAB PO SCH (21:00)
[2017-08-07] MEDS ORDERED: Aspirin 81 mg Enteric Coated Tablet PO SCH (21:00)
[2017-08-07] MEDS ORDERED: Atorvastatin Calcium 40 MG TAB PO SCH (21:00)
[2017-08-07] MEDS ORDERED: Famotidine 20 MG TAB PO SCH (21:00)
--- NOTE | 2017-08-07 23:44 | HP ---
REASON FOR ADMISSION: Chest pain. HISTORY OF PRESENT ILLNESS: The patient gives history of having pressure-like sensation in her chest from 9:00 a.m. onwards. After a few minutes, patient developed left-sided chest pain with left hand tingling sensation. This was associated with profuse diaphoresis and shortness of breath. She took one tablet of sublingual nitroglycerin with no relief. She tried to get her blood pressure and pulse check with her electronic machine, but it was not working. She finally took a second tablet of sublingual nitroglycerin and still had no relief. She began crying out loud and her called EMS and patient was brought here. She has complaints of dry cough, but no expectoration. No complaints of fever. Patient states she normally ambulates well inside the house. She in fact had a recent followup with Dr. Cheatham and was advised to undergo AICD in a week from now. Patient also started Humira shots from 2017 for rheumatoid arthritis from Dr. Checo Vigil, whom she has been seen for Rheumatology. No complaints of palpitations, PND, or orthopnea. PAST MEDICAL AND SURGICAL HISTORY: History of coronary artery disease, ischemic cardiomyopathy, hypertension, dyslipidemia, history of rheumatoid arthritis, prior history of coronary artery bypass surgery done in [address] Stokes, history of kidney stones, cataract surgery, wrist surgery, cholecystectomy, hysterectomy, tonsillectomy. Echo done in this month showed an EF of around 35%, prior cardiac catheterization done in 12/2016 showed 50% left main, complete mid LAD occlusion, 100% proximal circumflex, and 100% RCA occlusion. She had patent saphenous vein graft to OM to diagonal, ROSARIO to LAD was also patent. Had a myocardial perfusion scan done, which showed lateral wall defect secondary to prior [place]. No significant redistribution of radiopharmaceutical was seen to suggest viability of the tissue with the lateral wall. This was done in 05/2017. CURRENT MEDICATIONS: The patient is on Plavix 75 mg daily, aspirin 81 mg p.o. daily, Ranexa 1000 mg p.o. twice daily, Lasix 40 mg twice daily, potassium chloride 10 mEq p.o. daily, Coreg 3.125 mg p.o. twice daily, atorvastatin 40 mg p.o. at bedtime, Norvasc 2.5 mg p.o. daily, Nexium 40 mg p.o. daily. ALLERGIES: LEFLUNOMIDE. PERSONAL HISTORY: Drinks a glass of wine every other night. Does not abuse drugs or smoke. Lives with her . FAMILY HISTORY: Mother lived up to 78 years. She had history of coronary artery disease. Father of prostate cancer with multiple metastases at the age of 77 years. REVIEW OF SYSTEMS: The following complete review of systems was negative, unless otherwise mentioned in the HPI or below: Constitutional: Weight loss or gain, ability to conduct usual activities. Skin: Rash, itching. Eyes: Double vision, pain. ENT/Mouth: Nose bleeding, neck stiffness, pain, tenderness. Cardiovascular: Palpitations, dyspnea on exertion, orthopnea. Respiratory: Shortness of breath, wheezing, cough, hemoptysis, fever or night sweats. Gastrointestinal: Poor appetite, abdominal pain, heartburn, nausea, vomiting, constipation, or diarrhea. Genitourinary: Urgency, frequency, dysuria, nocturia. Musculoskeletal: Pain, swelling. Neurologic/Psychiatric: Anxiety, depression. Allergy/Immunologic: Skin rash, bleeding tendency. PHYSICAL EXAMINATION: GENERAL: The patient is a 76-year-old female who is currently not in any acute distress and is chest pain free at present. VITAL SIGNS: Blood pressure 115/64, pulse 48 per minute, respiratory rate 16 per minute, temperature 97.8 degrees Fahrenheit, saturating 97% on room air. NECK: Supple, no elevated JVD. HEENT: Eyes, extraocular muscles intact. Pupils reacting to light. Oral cavity, mucous membranes are moist. No exudates or congestion. CARDIOVASCULAR SYSTEM: S1, S2 heard. Regular rhythm. RESPIRATORY SYSTEM: Air entry 1+ bilateral. No rales or rhonchi. ABDOMEN: Soft, bowel sounds heard. No tenderness, rigidity, or guarding. EXTREMITIES: No peripheral edema or calf tenderness. VASCULAR SYSTEM: Peripheral pulses 1+ bilateral, no ischemic ulcerations or gangrene. CENTRAL NERVOUS SYSTEM: No gross focal deficits seen. Patient is alert, awake , and oriented well. PSYCHIATRIC SYSTEM: The patient's mood is euthymic. No hallucinations or delusions. LABORATORY AND X-RAY FINDINGS: White count of 5.5, H&H 13 and 38, platelet count 194, MCV is 99 with 73% neutrophils. Electrolytes are stable. BUN 20, creatinine 0.7. Liver enzymes are within normal limits. CK-MB 0.8. Troponin x2 is negative. BNP is 71. Albumin is 3.5. Chest x-ray done shows no acute cardiopulmonary process. EKG done shows sinus bradycardia at 49 beats per minute. There is Q-wave seen in lead II, III, AVF, likely old. CLINICAL IMPRESSION AND PLAN: The patient will be shortly discharged home. She has had 2 sets of troponin done, which are negative. The patient describes typical angina pain. I have discussed her findings with Dr. Cheatham. She has been complaining of these symptoms off and on for the last year and a half. She has had close follow ups with Dr. Cheatham as well. The patient is scheduled for an AICD in a week from now for worsening ejection fraction coming down to 35 % per records. She was evaluated by Dr. Judd Mccormick on 07/30/2017. She was recently discharged on the after being hospitalized for chest pain. She has extensive cardiac history and is fairly stable at present. As far as her bradycardia is concerned, I discussed with Dr. Cheatham. The plan is to hold her Coreg. She is not on ivabradine and I have confirmed this with Dr. Cheatham. The patient needs to keep a diary for pulse and blood pressure at home twice daily. Dr. Cheatham will be shortly following up with the patient in the outpatient setting. I have reassured the patient and her about her pain is not due to acute [place] at present. She is hemodynamically stable at present with no symptoms. This is a same day admission and discharge under observation status. [facility]
[2017-08-08] MEDS ORDERED: Potassium Chloride 10 MEQ TAB PO SCH (09:00)
[2017-08-08] MEDS ORDERED: Enoxaparin Sodium 40 MG/0.4 ML SYRINGE SC SCH (09:00)
[2017-08-08] MEDS ORDERED: Clopidogrel Bisulfate 75 MG TAB PO SCH (09:00)
== END 2017-08-07 12:12 | disposition short-term general hospital (02) ==
LOC: ERS 10:44
DX: R07.9 Chest pain, unspecified (principal); I25.2 Old myocardial infarction; I25.10 Atherosclerotic heart disease of native coronary artery without angina pectoris; E78.5 Hyperlipidemia, unspecified; Z79.02 Long term (current) use of antithrombotics/antiplatelets; Z79.899 Other long term (current) drug therapy; Z79.82 Long term (current) use of aspirin
CPT/HCPCS: 36415; 71045; 80053; 82550; 82553; 83880; 84484; 85025; 93005; 96374; J2270

== ENCOUNTER → 2017-09-03 | Day surgery (SDC) | payer MEDICARE, BC ==
[2017-09-02 12:00] VITALS: BMI 31.3
[~2017-09-03] MED LIST: Fentanyl 100 MCG/2 ML VIAL ONE; Heparin 10,000 UNITS/1 ML VIAL ONE; Iopamidol 370 76% 100 ML VIAL ONE; Lidocaine 1% (PF) 30 ML VIAL ONE; Midazolam HCl 2 mg/2 ml Vial ONE; Nitroglycerin 100MG/250ML BOT 0 ML ONE; Verapamil 5 MG/2 ML VIAL ONE
[2017-09-03 08:20] LABS: PTT 28.6 SEC (22.9-36.1)
--- NOTE | 2017-09-03 20:27 | EKG ---
Test Reason : PREOP Blood Pressure : / mmHG Vent. Rate : 064 BPM Atrial Rate : 064 BPM P-R Int : 172 ms QRS Dur : 098 ms QT Int : 450 ms P-R-T Axes : 043 000 093 degrees QTc Int : 464 ms Sinus rhythm with occasional Premature ventricular complexes Inferior infarct (cited on or before 12-JUL-2010) Abnormal ECG When compared with ECG of 07-AUG-2017 11:49, (Unconfirmed) Premature ventricular complexes are now Present Confirmed by MCKENZIE FORBES, DR. Slade ([id number]) on 09/03/2017 8:27:12 PM Referred By: LIZ Confirmed By:DR. Yany RINCON MD
== END ==
LOC: CCL 06:58
PROVIDERS: ATTEND Internal Medicine Cardiovascular Disease
PROC: 4A023N7 Measurement of Cardiac Sampling and Pressure, Left Heart, Percutaneous Approach (ICD-10-PCS; principal; 2017-09-03)
PROC: B2111ZZ Fluoroscopy of Multiple Coronary Arteries using Low Osmolar Contrast (ICD-10-PCS; 2017-09-03)
PROC: B2131ZZ Fluoroscopy of Multiple Coronary Artery Bypass Grafts using Low Osmolar Contrast (ICD-10-PCS; 2017-09-03)
DX: I25.10 Atherosclerotic heart disease of native coronary artery without angina pectoris (principal); E78.00 Pure hypercholesterolemia, unspecified; E78.5 Hyperlipidemia, unspecified; M06.9 Rheumatoid arthritis, unspecified; I25.5 Ischemic cardiomyopathy; Z79.02 Long term (current) use of antithrombotics/antiplatelets; Z79.82 Long term (current) use of aspirin; Z79.899 Other long term (current) drug therapy; Z88.8 Allergy status to other drugs, medicaments and biological substances; Z95.1 Presence of aortocoronary bypass graft
CPT/HCPCS: 85610; 85730; 93005; 93455; C1769; 93010; 99152; 99153; J1644; J2001; J2250; J3010

== ENCOUNTER 2017-11-12 12:01 | Observation (INO) | payer MEDICARE, BC ==
[2017-11-12 13:09] LABS: #Eosinphils 0.1 thou/uL (0.0-0.7); #Lymphocytes 1.1 thou/uL (1.20-3.40); #Monocytes 0.4 thou/uL (0.11-0.59); #Neutrophils 3.9 thou/uL (1.40-6.50); %Basophils 0.6 % (0.0-1.0); %Eosinophils 2.3 % (0.0-10.0); %Lymphocytes 19.7 % (21.0-51.0); %Monocytes 6.5 % (0.0-10.0); %Neutrophils 70.9 % (42.0-75.0); Hemoglobin 13.5 g/dL (12.0-16.0); Mean Corpuscular HGB CONC 35.4 g/dL (32.0-36.0); Mean Corpuscular Hemoglobin 34.7 pg (27.0-31.0); Mean Corpuscular Volume 98.1 fL (78.0-98.0); Mean Platelet Volume 6.7 fL (7.4-10.4); Platelet Count 200 thou/uL (130-400); RBC Distribution Width 11.5 % (11.5-14.5); Red Blood Cell (RBC) Count 3.88 mill/uL (4.20-5.40); White Blood Cell (WBC) Count 5.5 thou/uL (4.8-10.8)
[2017-11-12 13:31] LABS: ALT (SGPT) 13 U/L (8-55); AST (SGOT) 18 U/L (5-34); Albumin 3.7 g/dL (3.4-4.8); Alkaline Phosphatase 62 U/L (40-150); Anion Gap 15 mmol/L (10-20); BUN (Urea Nitrogen) 20 mg/dL (9.8-20.1); Bilirubin, Total 0.8 mg/dL (0.2-1.2); CK (CPK) 30 U/L (29-168); Calc. Creatinine Clearance 0 mL/min (70-130); Calcium 8.8 mg/dL (7.8-10.44); Carbon Dioxide 23 mmol/L (23-31); Chloride 105 mmol/L (98-107); Estimated GFR-MDRD 73; Globulin 2.6 g/dL (2.4-3.5); Glucose 102 mg/dL (83-110); Lipase 56 U/L (8-78); Potassium 4.5 mmol/L (3.5-5.1); Protein, Total 6.3 g/dL (6.0-8.3); Sodium 138 mmol/L (136-145)
[2017-11-12 13:34] LABS: CKMB 0.9 ng/mL (0-6.6); Troponin I Less than 0.010 ng/mL (< 0.028)
--- NOTE | 2017-11-12 13:46 | RAD ---
CHEST 1 VIEW: Date: 11/12/17 HISTORY: Chest pain. COMPARISON: Chest radiograph dated 08/07/17. FINDINGS: The lungs are clear. No pneumothorax or effusion. Cardiac silhouette and mediastinal contour is withi n normal limits. There is a new single lead defibrillator. IMPRESSION: New defibrillator without complication. POS: [facility]
[2017-11-12] MEDS ORDERED: Acetaminophen 325 MG TAB PO PRN ×2 (15:07→15:17)
[2017-11-12] MEDS ORDERED: Aspirin 325 MG TAB PO SCH (15:15)
[2017-11-12] MEDS ORDERED: Ondansetron HCl/PF 4 MG/2 ML Vial IVP PRN (15:17)
[2017-11-12] MEDS ORDERED: Milk Of Magnesia 30 ML UDCUP PO PRN (15:17)
[2017-11-12] MEDS ORDERED: Ondansetron ODT 4 MG TAB PO PRN (15:17)
[2017-11-12] MEDS ORDERED: Senokot 8.6 MG TAB PO PRN (15:17)
[2017-11-12] MEDS ORDERED: Mag-Al 1200 mg/1200 mg/30 ML UDCUP PO PRN (15:17)
[2017-11-12] MEDS ORDERED: Calcium Carbonate 500 MG ChewTAB PO PRN (15:17)
[2017-11-12] MEDS ORDERED: Nitroglycerin 0.4 MG TAB (25 Tab Bottle) PO PRN (15:17)
[2017-11-12] MEDS ORDERED: Labetalol HCl 100 MG/20 ML VIAL SLOW IVP PRN (15:19)
[2017-11-12 15:47] VITALS: BMI 31.3
[2017-11-12] MEDS ORDERED: Benzonatate 100 MG CAP PO PRN (16:37)
[2017-11-12] MEDS ORDERED: Docusate 100 MG CAP PO PRN (16:37)
[2017-11-12] MEDS ORDERED: Nitroglycerin 0.4 MG TAB (25 Tab Bottle) SL PRN (16:37)
[2017-11-12 16:48] LABS: Troponin I Less than 0.010 ng/mL (< 0.028)
--- NOTE | 2017-11-12 17:57 | HP ---
DATE OF ADMISSION: 11/12/2017 PRIMARY CARE PHYSICIAN: Dr. Ethan Gardner. PRIMARY TOUR AGENT: Dr. Cheatham. CHIEF COMPLAINT: Chest discomfort. HISTORY OF PRESENT ILLNESS: The patient is a 77-year-old female with coronary artery disease, status post CABG; hypertension; and hyperlipidemia. She presented to the emergency room with chest discomf ort. She [facility] The patient has on and off chest discomfort since her CABG. This morning, her pain was severe, radia ting to her left arm. She was nauseous without any vomiting. She also had mild diaphoresis. The pa in was pressure-like, moderate to severe in intensity. She also had some shortness of breath as well . No orthopnea or paroxysmal nocturnal dyspnea reported. In the emergency room, her vital signs showed temperature 98, pulse rate of 70, respirations 24, bloo d pressure 110/71. Her troponins were negative. D-dimer was also negative at [facility]. BNP was 72. She received aspirin, morphine, nitropatch and was transferred to this facility for admissio n. Her EKG showed sinus rhythm with nonspecific ST-T wave changes in the inferior leads. PAST MEDICAL HISTORY: 1. Coronary artery disease. 2. Ischemic cardiomyopathy. 3. Hypertension. 4. Dyslipidemia. 5. Rheumatoid arthritis. PAST SURGICAL HISTORY: 1. Coronary artery bypass grafting in 2016. 2. Recent cardiac catheterization. 3. Cholecystectomy. 4. Wrist surgery. 5. Cataract surgery. ALLERGIES: The patient is allergic to LEFLUNOMIDE, PLAQUENIL. CURRENT HOME MEDICATIONS: Aspirin 81 mg daily, Lipitor 40 mg at bedtime, carvedilol 3.125 mg b.i.d., Plavix 75 mg daily, Dexilant 60 mg daily, Lasix 40 mg b.i.d., potassium chloride 10 mEq daily, Ranex a 1000 mg b.i.d. SOCIAL HISTORY: The patient currently lives at home with her . She is FULL CODE, makes her o wn decision. She denies any smoking. She drinks wine every other night. FAMILY HISTORY: Positive for coronary artery disease. Father of metastatic prostate cancer. REVIEW OF SYSTEMS: The following complete review of systems was negative, unless otherwise mentioned in the HPI or below: Constitutional: Weight loss or gain, ability to conduct usual activities. Sk in: Rash, itching. Eyes: Double vision, pain. ENT/Mouth: Nose bleeding, neck stiffness, pain, te nderness. Cardiovascular: Palpitations, dyspnea on exertion, orthopnea. Respiratory: Shortness of breath, wheezing, cough, hemoptysis, fever or night sweats. Gastrointestinal: Poor appetite, abdom inal pain, heartburn, nausea, vomiting, constipation, or diarrhea. Genitourinary: Urgency, frequenc y, dysuria, nocturia. Musculoskeletal: Pain, swelling. Neurologic/Psychiatric: Anxiety, depressio n. Allergy/Immunologic: Skin rash, bleeding tendency. PHYSICAL EXAMINATION: VITAL SIGNS: As discussed above. GENERAL: A 77-year-old female, in no apparent distress. Denies any chest pain at this time. HEENT: Head atraumatic, normocephalic. Sclerae are anicteric. Moist mucous membrane, no oral lesio n. NECK: Supple, no JVD, no carotid bruit. LUNGS: Clear to auscultation bilaterally, no wheezing, rales or rhonchi. HEART: S1, S2 present. Regular rate and rhythm, 2/6 systolic murmur over the mitral area. Healed m idline scar from previous CABG. ABDOMEN: Soft, nontender, bowel sounds present. EXTREMITIES: No edema or calf tenderness in the right lower extremity. Left lower extremity with 1+ edema. SKIN: Warm and dry. LYMPH NODES: No palpable lymph nodes in the neck. PERIPHERAL VASCULAR: Radial pulses palpable bilaterally. MUSCULOSKELETAL: No joint swelling or tenderness. LABORATORY FINDINGS: 1. Chemistry showed sodium 140, potassium 4.2, chloride 106, bicarbonate 25, BUN of 21, creatinine 0 .83. 2. Troponins negative. 3. CBC showed WBC 4, hemoglobin 13.9, hematocrit 41, platelet 213. 4. EKG by my review as discussed above. 5. Chest x-ray at [facility] was negative for acute findings. IMPRESSION AND PLAN: 1. Chest discomfort in a 77-year-old female with coronary artery disease, status post CABG. She rec ently had a cardiac catheterization by Dr. Cheatham. We will continue aspirin and Plavix for now. Con tinue nitropatch. We will consult Cardiology. Telemetry monitoring. Serial troponins. 2. Hypertension. We will continue her home medications. We will hold for systolic blood pressure l ess than 100. 3. Dyslipidemia. We will continue statins. 4. Obesity with a BMI of 31.4. 5. Gastroesophageal reflux disease. We will continue proton pump inhibitors. 6. History of rheumatoid arthritis. 7. History of coronary artery bypass grafting. Plan of care was discussed with the patient in detail. She stated understanding.
--- NOTE | 2017-11-12 20:29 | CON ---
DATE OF CONSULTATION: 11/12/2017 REASON FOR CONSULTATION: Chest pain. HISTORY OF PRESENT ILLNESS: Ms. Villafana is a very pleasant 77-year-old white female very well known to myself who comes to the hospital for chest pain. She has chronic chest pain. She has a history of coronary artery disease with previous bypass. Please see previous notes for details. She had a hear t catheterization back in August of this year where it was found to have severe [place] disease with occl uded [place] vessels, left circumflex and LAD. She had patent veins to the left circumflex to the fir st diagonal and a patent ROSARIO to the LAD. The RCA was not revascularized with surgery, but she had h ealthy collaterals from the left circumflex. She was recommended to continue medical therapy as she had been admitted several times to the hospital with the same problem. She shows up today as she had been traveling quite a bit around the [place] and [place] driving around and she developed episodes o f chest pain and eventually decided to come in as her pain was very severe this morning. Otherwise, no other issues currently. Her pain is a little bit better controlled. PAST MEDICAL HISTORY: 1. Coronary artery disease as above. 2. Hyperlipidemia. 3. Rheumatoid arthritis. PAST SURGICAL HISTORY: 1. Coronary artery bypass grafting x3 as above. 2. 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 OUTPATIENT MEDICATIONS: Reviewed include: 1. Lasix 40 mg b.i.d. 2. Carvedilol 3.125 mg b.i.d. 3. Tessalon Perles. 4. Lipitor 40 at bedtime. 5. Aspirin 81 a day. 6. Docusate. 7. Dexlansoprazole. 8. Plavix 75 mg a day. 9. Nitroglycerin sublingual. 10. Restasis. 11. Ranexa 1000 mg b.i.d. 12. Potassium chloride. ALLERGIES: HYDROXYCHLOROQUINE and LEFLUNOMIDE. SOCIAL HISTORY: No alcohol, tobacco or drugs. FAMILY HISTORY: Noncontributory. REVIEW OF SYSTEMS: A 12-point review of systems was done and is all negative unless stated in histor y of present illness. PHYSICAL EXAMINATION: VITAL SIGNS: Temperature 97.3, pulse 70, respiratory rate 18, satting 95% on room air, blood pressur e 113/63. GENERAL: Awake, alert, oriented x3, in no distress. HEENT: Normocephalic, atraumatic. NECK: Supple. LUNGS: Lungs are clear. CARDIOVASCULAR: S1, S2, no S3, S4, no murmurs. ABDOMEN: Soft with positive bowel sounds. EXTREMITIES: No edema. SKIN: Warm and dry. LABORATORY WORK: Reviewed. CBC is unremarkable. Chemistry is normal. Troponin is undetectable x2 and there is another negative troponin in the [place] facility so 3 negative troponins. BNP of 85. ASSESSMENT AND PLAN: 1. Chest pain: Chronic chest pain. No evidence of an acute coronary syndrome. She has been revasc ularized. Her most recent heart catheterization was back in August. Only reason to do a repeat heart c atheterization as if her troponins were to bump, not an issue at this time. Would keep her overnight . I will plan on stopping her carvedilol and adding isosorbide dinitrate 5 mg twice a day to her reg imen to see if this is small vessel disease or micro-vessel disease and she may feel little improveme nt with a little bit of nitrate. She had not tolerated Imdur in the past as she would get hypertensi ve. She actually was very hypertensive, when she came in as she has already had 5 sublingual nitrogl ycerins. Blood pressure was in the 60s/40s 2. Coronary artery disease: Stable at this time. No acute coronary syndrome. 3. Status post coronary artery bypass graft. 4. Rheumatoid arthritis. Thank you for letting us to participate in the care of your patient. We will follow. The patient seda long be discharged home tomorrow morning if her troponins remain negative.
[2017-11-12] MEDS ORDERED: Atorvastatin Calcium 40 MG TAB PO SCH (21:00)
[2017-11-12] MEDS ORDERED: Carvedilol 3.125 MG TAB PO SCH (21:00)
[2017-11-12] MEDS: cycloSPORINE 0.05% Ophthalmic Droperette EA EYE SCH (21:08)
[2017-11-12] MEDS: Isosorbide Dinitrate 5 MG TAB PO SCH (21:08)
[2017-11-13 08:17] VITALS: TEMP 97.1
[2017-11-13] MEDS ORDERED: Clopidogrel Bisulfate 75 MG TAB PO SCH (09:00)
[2017-11-13] MEDS ORDERED: Furosemide 40 MG TAB PO SCH (09:00)
[2017-11-13] MEDS ORDERED: Aspirin 81 mg Enteric Coated Tablet PO SCH (09:00)
[2017-11-13] MEDS ORDERED: Potassium Chloride 10 MEQ TAB PO SCH (09:00)
[2017-11-13] MEDS: Isosorbide Dinitrate 5 MG TAB PO SCH (09:47)
[2017-11-13] MEDS: cycloSPORINE 0.05% Ophthalmic Droperette EA EYE SCH (09:48)
--- NOTE | 2017-11-13 09:52 | PDOC.CTH ---
Cardiology Progress Note - Subjective Having alittle pain this morning. Not as bad as what brought her in. Close to her baseline chronic daily pain. - Objective Vital Signs Temp Pulse Resp BP Pulse Ox 11/13/17 08:20 97.1 F L 69 16 11/13/17 07:47 97.1 F L 69 16 91/51 L 92 L 11/13/17 04:00 97.5 F L 69 14 110/57 L 96 11/12/17 23:23 98.0 F 75 16 114/63 97 Weight 185 lb 3 oz 11/12/17 11/13/17 11/14/17 06:59 06:59 06:59 Intake Total 840 Output Total 850 Balance -10 - Physical Examination General/Neuro: alert & oriented x3, NAD Neck: no JVD present Lungs: CTA, unlabored respirations Heart: RRR Abdomen: NT/ND Extremities: + edema B (1+) - Telemetry Telemetry Rhythm: NSR - Labs Result Diagrams: 11/12/17 13:00 11/12/17 13:00 Troponin/CKMB CK-MB (CK-2) 1.0 ng/mL (0-6.6) 11/12/17 16:10 Troponin I Less than 0.010 ng/mL (< 0.028) 11/12/17 16:10 - Assessment/Plan 1. Chronic chest pain. 2. CAD. 3. S/P CABG PLAN: - Will repeat one last troponin this mornings and if normal she may be discharged home. - Stop Coreg indefinitely and continue Isordil 5 mg BID. - Follow up in 1-2 months.
[2017-11-13 10:23] LABS: CKMB 0.9 ng/mL (0-6.6); Troponin I Less than 0.010 ng/mL (< 0.028)
[2017-11-13 10:30] VITALS: BP 105/59
--- NOTE | 2017-11-14 09:05 | DIS ---
DATE OF DISCHARGE: 11/13/2017 DISCHARGE DISPOSITION: Home. FOLLOWUP: 1. Follow up with primary care physician, Dr. Gardner, in 1 week. 2. Follow up with Dr. Cheatham as scheduled. DISCHARGE MEDICATIONS: 1. Isosorbide dinitrate 5 mg b.i.d. 2. Carvedilol was discontinued. 3. All other home medications were resumed. BRIEF HOSPITAL COURSE: The patient is a 77-year-old female with coronary artery disease, status post CABG, hypertension, and hyperlipidemia, who presented to the emergency room with chest discomfort. She initially presented to [facility] and was transferred to this facility. Please refe r to the history and physical for further details. The patient was admitted to the hospital with a diagnosis of chest discomfort, rule out acute coronar y syndrome. Her serial troponins remained negative. The patient was seen by Cardiology, Dr. Cheatham. Aspirin and Plavix were continued. The pain improved with nitro patch. Carvedilol has been discon tinued. She has been started on isosorbide dinitrate. Troponin was also repeated on the day of disc , which remained negative. The patient has been cleared by Cardiology for discharge. FINAL DIAGNOSES: 1. Chest discomfort, acute coronary syndrome ruled out. 2. Coronary artery disease, status post coronary artery bypass grafting. 3. Hypertension. 4. Dyslipidemia. 5. Obesity with a BMI 31.4. 6. Gastroesophageal reflux disease. 7. History of rheumatoid arthritis. The patient was seen and examined on the day of discharge. Plan of care was discussed with the patient in detail. She stated understanding.
== END 2017-11-13 11:23 | disposition home or self-care (01) ==
LOC: ERS 12:01 → 2SW 13:34 → ERS 14:55
PROVIDERS: ADMIT Internal Medicine; ATTEND Internal Medicine
DX: R07.89 Other chest pain (principal); I25.10 Atherosclerotic heart disease of native coronary artery without angina pectoris; I10 Essential (primary) hypertension; E78.5 Hyperlipidemia, unspecified; M06.9 Rheumatoid arthritis, unspecified; K21.9 Gastro-esophageal reflux disease without esophagitis; E66.9 Obesity, unspecified; Z68.31 Body mass index [BMI] 31.0-31.9, adult; Z79.82 Long term (current) use of aspirin; Z79.02 Long term (current) use of antithrombotics/antiplatelets; Z79.899 Other long term (current) drug therapy; Z88.1 Allergy status to other antibiotic agents; Z95.1 Presence of aortocoronary bypass graft
CPT/HCPCS: 71045; 80053; 82550; 82553 ×3; 83690; 83880; 84484 ×3; 85025; 93005; 94760; 99285; G0378 ×2; 36415

== ENCOUNTER 2017-11-15 10:54 | Emergency (ER) | payer MEDICARE, BC ==
[2017-11-15] MEDS ORDERED: Lorazepam 2 MG/ML VIAL ONE (11:36)
[2017-11-15] MEDS ORDERED: Nitroglycerin 0.4 MG TAB (25 Tab Bottle) ONE (11:37)
[2017-11-15 11:41] LABS: #Eosinphils 0.2 thou/uL (0.0-0.7); #Lymphocytes 1.3 thou/uL (1.20-3.40); #Monocytes 0.5 thou/uL (0.11-0.59); #Neutrophils 2.8 thou/uL (1.40-6.50); %Basophils 0.8 % (0.0-1.0); %Eosinophils 4.1 % (0.0-10.0); %Lymphocytes 27.2 % (21.0-51.0); %Monocytes 10.1 % (0.0-10.0); %Neutrophils 57.8 % (42.0-75.0); Hemoglobin 14.2 g/dL (12.0-16.0); Mean Corpuscular HGB CONC 35.1 g/dL (32.0-36.0); Mean Corpuscular Hemoglobin 34.3 pg (27.0-31.0); Mean Corpuscular Volume 97.7 fL (78.0-98.0); Mean Platelet Volume 7.1 fL (7.4-10.4); Platelet Count 209 thou/uL (130-400); RBC Distribution Width 11.5 % (11.5-14.5); Red Blood Cell (RBC) Count 4.13 mill/uL (4.20-5.40); White Blood Cell (WBC) Count 4.9 thou/uL (4.8-10.8)
[2017-11-15] MEDS ORDERED: Isosorbide Dinitrate 5 MG TAB PO SCH (11:45)
[2017-11-15 12:04] LABS: ALT (SGPT) 17 U/L (8-55); AST (SGOT) 20 U/L (5-34); Albumin 3.8 g/dL (3.4-4.8); Alkaline Phosphatase 65 U/L (40-150); Anion Gap 14 mmol/L (10-20); BUN (Urea Nitrogen) 22 mg/dL (9.8-20.1); Bilirubin, Total 0.9 mg/dL (0.2-1.2); CK (CPK) 31 U/L (29-168); Calc. Creatinine Clearance 0 mL/min (70-130); Calcium 9.4 mg/dL (7.8-10.44); Carbon Dioxide 24 mmol/L (23-31); Chloride 104 mmol/L (98-107); Estimated GFR-MDRD 69; Globulin 2.8 g/dL (2.4-3.5); Glucose 119 mg/dL (83-110); Lipase 53 U/L (8-78); Potassium 4.6 mmol/L (3.5-5.1); Protein, Total 6.6 g/dL (6.0-8.3); Sodium 137 mmol/L (136-145)
[2017-11-15 13:15] LABS: CKMB 0.6 ng/mL (0-6.6); Troponin I Less than 0.010 ng/mL (< 0.028)
== END 2017-11-15 13:55 | disposition home or self-care (01) ==
LOC: ERS 10:54
DX: R07.9 Chest pain, unspecified (principal); G89.29 Other chronic pain; I25.10 Atherosclerotic heart disease of native coronary artery without angina pectoris; I25.2 Old myocardial infarction; M06.9 Rheumatoid arthritis, unspecified; E78.5 Hyperlipidemia, unspecified; I50.9 Heart failure, unspecified; Z79.899 Other long term (current) drug therapy; Z79.82 Long term (current) use of aspirin
CPT/HCPCS: 36415; 80053; 82550; 82553; 83690; 84484; 85025; 93005; 94760; 96361; 96374; J2060

== ENCOUNTER 2018-07-01 05:55 | Observation (INO) | payer MEDICARE, BC ==
[2018-07-01] MEDS ORDERED: Ondansetron PF 4 MG/2 ML Vial ONE (06:08)
[2018-07-01] MEDS ORDERED: Morphine 4 MG/ML VIAL ONE (06:08)
[2018-07-01] MEDS ORDERED: traMADol HCl 50 MG TAB PO PRN (08:26)
[2018-07-01] MEDS ORDERED: traMADol HCl 50 MG TAB ONE (08:29)
[2018-07-01] MEDS ORDERED: Fentanyl 100 MCG/2 ML VIAL SLOW IVP PRN (09:00)
[2018-07-01] MEDS ORDERED: Calcium Carbonate 500 MG ChewTAB PO PRN (09:31)
[2018-07-01] MEDS ORDERED: Acetaminophen 325 MG TAB PO PRN (09:31)
[2018-07-01] MEDS ORDERED: Nitroglycerin 0.4 MG TAB (25 Tab Bottle) PO PRN (09:31)
[2018-07-01] MEDS ORDERED: Benzonatate 100 MG CAP PO PRN (09:34)
[2018-07-01] MEDS ORDERED: Docusate 100 MG CAP PO PRN (09:34)
[2018-07-01] MEDS ORDERED: Clopidogrel Bisulfate 75 MG TAB PO SCH (09:45)
--- NOTE | 2018-07-01 10:14 | HP ---
CHIEF COMPLAINT: Chest discomfort. HISTORY OF PRESENT ILLNESS: The patient is a 77-year-old female, followed by Dr. Cheatham with coronary artery disease, status post CABG with last cardiac catheterization last year, presented to [facility] with chest discomfort. The chest discomfort started around 2 a.m., this morning while she was sleeping. It was substernal, radiating to her left arm. It was moderate in intensity without any aggravating or relieving factor. She was nauseous and diaphoretic at that time. Over the last 3 weeks, the patient has a total of 14 episodes of chest discomfort. It was worse this admission. She denies recent immobilization, travel, heartburn, cough, shortness of breath, or wheezing. She was lightheaded as well. PAST MEDICAL HISTORY: 1. Coronary artery disease, status post CABG. 2. Ischemic cardiomyopathy. 3. Hypertension. 4. Rheumatoid arthritis. 5. Dyslipidemia. PAST SURGICAL HISTORY: 1. Cardiac catheterization. 2. CABG in 2016. 3. Cholecystectomy. 4. Wrist surgery. 5. Cataract surgery. ALLERGIES: THE PATIENT IS ALLERGIC TO PLAQUENIL AND LEFLUNOMIDE. CURRENT HOME MEDICATIONS: Confirmed with the list provided by the patient: 1. Aspirin 81 mg daily. 2. Plavix 75 mg daily. 3. Colace as needed. 4. Lasix 40 mg twice a day. 5. Isosorbide dinitrate 5 mg b.i.d. 6. Sublingual nitroglycerin as needed. 7. Ranexa 1000 mg b.i.d. 8. Potassium chloride 10 mEq daily. 9. Tessalon Perles as needed. 10. Lipitor 40 mg at bedtime. SOCIAL HISTORY: The patient currently lives at home with her . She is full code, makes her own decision with the help of her family. She denies any smoking. She drinks a glass of wine with dinner every night. FAMILY HISTORY: Positive for heart disease. Father of metastatic prostate cancer. REVIEW OF SYSTEMS: The patient denies any fever, chills, or focal neurologic deficit. All other review of systems was reviewed and was found negative. PHYSICAL EXAMINATION: VITAL SIGNS: Temperature 98.4, respirations 16, pulse 70, blood pressure of 133/82, O2 saturation 99% on room air. GENERAL: A 77-year-old female, in mild distress due to ongoing chest pain. The pain is 5/10 at this time. HEENT: Head, atraumatic and normocephalic. Sclerae are anicteric. Moist mucous membrane. No oral lesion. NECK: Supple. No JVD appreciated. No carotid bruit. LUNGS: Clear to auscultation bilaterally. No wheezing, rales, or rhonchi. HEART: S1 and S2 present. Regular rate and rhythm. No rubs or gallops appreciated. No significant murmurs. ABDOMEN: Soft and nontender. Bowel sounds present. EXTREMITIES: No edema or calf tenderness. NEUROLOGIC: Grossly nonfocal. Moves all 4 extremities. PSYCHIATRIC: Alert, awake, and oriented x3. SKIN: Warm and dry. LYMPH NODES: No palpable lymph nodes in the neck. PERIPHERAL VASCULAR: Radial pulses palpable bilaterally. MUSCULOSKELETAL: No joint swelling or tenderness. LABORATORY FINDINGS: Laboratory findings from [facility]: PT of 12.4, INR 0.9, PTT 30.6. WBC 3.8, hemoglobin 14.9, hematocrit 42.5, platelet of 198. EKG by my review showed nonspecific ST-T wave changes in the inferior lead. Chest x-ray was negative for acute findings per [facility] ER record. Sodium 141, potassium 4, chloride 105, bicarb 23, BUN 14, creatinine 0.84, glucose of 97. Medications administered at [facility]: 1. Nitroglycerin patch. 2. Heparin 4000 units intravenously followed by heparin drip. 3. Fentanyl 2 doses of 50 mcg. The patient had received aspirin by the EMS. IMPRESSION: 1. Chest discomfort consistent with unstable angina. 2. Coronary artery disease, status post coronary artery bypass grafting in 2016. 3. Hypertension. 4. Dyslipidemia. 5. Obesity with a BMI of 31. 6. Gastroesophageal reflux disease. 7. History of rheumatoid arthritis. 8. Chronic kidney disease, stage 2. PLAN: The patient will be monitored in the telemetry unit. Cardiology, Dr. Cheatham will be consulted. We will keep her n.p.o. for possible intervention. We will monitor troponins. Continue aspirin, Plavix, nitroglycerin, and statins. The patient had issues with hypotension from carvedilol, which was discontinued last admission in 2018. Telemetry monitoring. Continue statins. Last fasting lipid profile 11 months ago showed cholesterol 156, LDL 69, HDL of 43 with triglyceride of 222. We will resume Ranexa along with Lasix as well. Plan of care was discussed with the patient in detail. She stated understanding. Job ID: [id number]
[2018-07-01] MEDS: Potassium Chloride 10 MEQ TAB PO SCH (11:09)
[2018-07-01] MEDS: cycloSPORINE 0.05% Ophthalmic Droperette EA EYE SCH ×2 (11:09→21:48)
[2018-07-01] MEDS ORDERED: Nitroglycerin 2% Ointment 1 INCH/1 GM Packet ONE (14:28)
[2018-07-01] MEDS: Nitroglycerin 2% Ointment 1 INCH/1 GM Packet TOP SCH ×2 (14:34→16:52)
[2018-07-01] MEDS: Furosemide 40 MG TAB PO SCH (15:59)
[2018-07-01 16:04] VITALS: BMI 33.0
--- NOTE | 2018-07-01 18:56 | CON ---
DATE OF CONSULTATION: 07/01/2018 REASON FOR CONSULTATION: Chest pain. HISTORY OF PRESENT ILLNESS: Ms. Villafana is a very pleasant 77-year-old white female, who comes to the hospital for chest pain. She has chronic chest pain, but she is very well known to myself for this. She underwent coronary artery bypass grafting in March 2017. At that point, she received a vein to an OM, a vein to a diagonal, a ROSARIO to the LAD, RCA was not grafted. She continued to have chest pain, so she was under the care of Dr. Roger at that time. She had an attempt at a CT of the RCA, which was unsuccessful. She then transferred care to myself and we repeated a heart catheterization in August of 2017, when she was found to have widely patent ROSARIO to the LAD, a patent vein to the left circ, patent vein to D1, and collaterals from the left circumflex to the RCA. Occluded [place] arteries. All RCA, left circ, and LAD were occluded. She continued to have chest pain in the last year, off and on, pretty much about 8-10 episodes a month. In the last 2 weeks, she has had episodes almost every day, so she decided to come in for further evaluation. We actually had her scheduled on for a heart catheterization, so we will plan on doing this at this time. PAST MEDICAL HISTORY: 1. Coronary artery disease. 2. Hyperlipidemia. 3. Rheumatoid arthritis. SURGICAL HISTORY: 1. Coronary artery bypass grafting x3. 2. Unsuccessful attempt to the right coronary artery as well. OUTPATIENT MEDICATIONS: 1. Restasis. 2. Ranexa 1000 mg b.i.d. 3. Potassium chloride. 4. Sublingual nitroglycerin p.r.n. 5. Isosorbide dinitrate, Isordil, 5 mg b.i.d. 6. Lasix 40 mg b.i.d. 7. Docusate 100 mg a day. 8. Plavix 75 mg a day. 9. Tessalon Perles. 10. Atorvastatin 40 mg nightly. 11. Aspirin 81 a day. ALLERGIES: LEFLUNOMIDE AND HYDROXYCHLOROQUINE. SOCIAL HISTORY: No alcohol, tobacco, or drugs. FAMILY HISTORY: Noncontributory. REVIEW OF SYSTEMS: A 12-point review of systems are negative unless stated in the history of present illness. PHYSICAL EXAMINATION: VITAL SIGNS: Temperature 98.1, pulse 68, respiratory rate 20, saturation 95% on room air, and blood pressure 103/57. GENERAL: Awake, alert, and oriented x3, in no distress. HEENT: Normocephalic and atraumatic. NECK: Supple. LUNGS: Clear. CARDIOVASCULAR: S1 and S2. No S3 or S4. There is a grade 2/6 systolic murmur in the left sternal border. ABDOMEN: Soft. Positive bowel sounds. EXTREMITIES: No edema. SKIN: Warm and dry. LABORATORY DATA: Laboratory work was reviewed. Troponin is undetectable x3. ASSESSMENT AND PLAN: 1. Chronic chest pain. There has been a change in the pattern of her pain. Concerning for unstable angina. We will plan on doing a left heart catheterization. We spoke at length the risks and benefits of the procedure. She agrees to proceed. She has had a viability study for her inferior wall and there was no viable tissue on what was called a lateral wall on the nuclear stress test, most likely refers to the inferior wall, which is akinetic. 2. Further recommendations per results of coronary angiogram. Job ID: [id number]
[2018-07-01] MEDS ORDERED: Non-Formulary Item 1 EACH (Ranolazine [Ranexa] 1,000 MG) PO SCH (21:00)
[2018-07-01] MEDS ORDERED: cycloSPORINE 0.05% Ophthalmic Droperette EA EYE SCH (21:00)
[2018-07-01] MEDS ORDERED: Atorvastatin Calcium 40 MG TAB PO SCH (21:00)
[2018-07-01] MEDS ORDERED: Aspirin 81 mg Enteric Coated Tablet PO SCH (21:00)
[2018-07-01] MEDS ORDERED: Communication Order-Pharmacy FS SCH (22:00)
[2018-07-02] MEDS ORDERED: Sodium Chloride 0.9% 1,000 ML IV SCH ×2 (00:01→08:15)
[2018-07-02] MEDS: Nitroglycerin 2% Ointment 1 INCH/1 GM Packet TOP SCH ×2 (01:35→08:27)
[2018-07-02] MEDS: Potassium Chloride 10 MEQ TAB PO SCH (04:57)
[2018-07-02] MEDS: cycloSPORINE 0.05% Ophthalmic Droperette EA EYE SCH (05:34)
[2018-07-02 06:29] LABS: #Eosinphils 0.2 thou/uL (0.0-0.7); #Lymphocytes 1.1 thou/uL (1.20-3.40); #Monocytes 0.4 thou/uL (0.11-0.59); #Neutrophils 1.5 thou/uL (1.40-6.50); %Basophils 0.3 % (0.0-1.0); %Lymphocytes 33.3 % (21.0-51.0); %Neutrophils 48.4 % (42.0-75.0); Hemoglobin 13.8 g/dL (12.0-16.0); Mean Corpuscular Hemoglobin 34.7 pg (27.0-31.0); Mean Platelet Volume 7.5 fL (7.4-10.4); Platelet Count 169 thou/uL (130-400); RBC Distribution Width 11.6 % (11.5-14.5); Red Blood Cell (RBC) Count 3.96 mill/uL (4.20-5.40); White Blood Cell (WBC) Count 3.2 thou/uL (4.8-10.8)
[2018-07-02 06:41] LABS: ALT (SGPT) 16 U/L (8-55); AST (SGOT) 17 U/L (5-34); Albumin 3.4 g/dL (3.4-4.8); Alkaline Phosphatase 56 U/L (40-150); Anion Gap 10 mmol/L (10-20); BUN (Urea Nitrogen) 16 mg/dL (9.8-20.1); Bilirubin, Total 0.8 mg/dL (0.2-1.2); Calc. Creatinine Clearance 76 mL/min (70-130); Calcium 9.3 mg/dL (7.8-10.44); Carbon Dioxide 27 mmol/L (23-31); Chloride 104 mmol/L (98-107); Estimated GFR-MDRD 69; Globulin 2.4 g/dL (2.4-3.5); Glucose 100 mg/dL (83-110); Potassium 4.2 mmol/L (3.5-5.1); Protein, Total 5.8 g/dL (6.0-8.3); Sodium 137 mmol/L (136-145)
[2018-07-02] MEDS ORDERED: Fentanyl 100 MCG/2 ML VIAL ONE (07:38)
[2018-07-02] MEDS ORDERED: Midazolam HCl 2 mg/2 ml Vial ONE (07:38)
[2018-07-02] MEDS ORDERED: Sodium Chloride 0.9% 200 ML IV PRN (08:07)
[2018-07-02] MEDS ORDERED: Acetaminophen/Codeine 30-300mg Tablet PO PRN (08:07)
[2018-07-02] MEDS: Furosemide 40 MG TAB PO SCH ×2 (08:11→13:18)
[2018-07-02] MEDS ORDERED: POTASSIUM CHLORIDE 10 MEQ PO SCH (09:00)
[2018-07-02] MEDS ORDERED: Clopidogrel Bisulfate 75 MG TAB PO SCH (09:00)
[2018-07-02] MEDS ORDERED: Iopamidol 370 76% 100 ML VIAL ONE ×2 (11:24→13:37)
[2018-07-02] MEDS ORDERED: Iopamidol 370 76% 50 ML VIAL FS ONE (11:24)
[2018-07-02 11:29] VITALS: BP 120/66; TEMP 98
--- NOTE | 2018-07-02 12:03 | CT ---
CT OF THE CHEST WITH CONTRAST: Date: 07/02/18 COMPARISON: 07/21/17. HISTORY: Chest pain. Patient had a procedure in the blood bank laboratory technician today. TECHNIQUE: Multiple contiguous axial images were obtained in a CT of the chest with contrast. Coronal reformats were performed. FINDINGS: There is an area of atelectasis in the left posterior apex, which is unchanged. No pneumothorax or pl eural effusion seen. There are scattered areas of nodularity in the bilateral lower lobes measuring 2 -3 mm in size. These are less pronounced than on the prior examination and likely not of clinical sig nificance. The heart is upper limits of normal in size. There is a single lead seen in the right ventricular ape x. The patient is status post CABG. No hilar or mediastinal lymphadenopathy seen. The patient is status post cholecystectomy. The visualized subdiaphragmatic structures are otherwise unremarkable. The chest wall soft tissues are unremarkable. Degenerative changes are seen in the spin e. IMPRESSION: No evidence of acute intrathoracic abnormality. POS: [facility]
--- NOTE | 2018-07-02 17:45 | DIS ---
DATE OF ADMISSION: 07/01/2018 DATE OF DISCHARGE: 07/02/2018 DISCHARGE DISPOSITION: Home. FOLLOWUP: 1. Follow up with primary care physician, Dr. Gardner, in 1 week. 2. Follow up with Dr. Cheatham as scheduled. ALLERGIES: THE PATIENT IS ALLERGIC TO HYDROXYCHLOROQUINE AND LEFLUNOMIDE. THE PATIENT WAS SEEN ON THE DAY OF DISCHARGE. DENIES ANY NEW COMPLAINTS. NO CHEST PAIN, SHORTNESS OF BREATH, PALPITATIONS. BRIEF HOSPITAL COURSE: The patient is a 77-year-old female with coronary artery disease, status post CABG, presented to the emergency room with chest discomfort. Please refer to the history and physical for further details. The patient was admitted to the hospital with diagnoses of chest discomfort, rule out acute coronary syndrome. Serial troponins were negative. Due to her symptoms consistent with unstable angina, she underwent cardiac catheterization, that showed severe pala coronary artery disease. Coronary artery bypass grafts were patent. Medical therapy was recommended. After cardiac catheterization, she underwent a CT angiogram of the chest, which was negative for pulmonary embolism. Isosorbide dinitrate dose has been increased to 10 mg twice a day. All other home medications were left unchanged. She will continue aspirin, Plavix with Ranexa. She has been cleared by Cardiology for discharge. FINAL DIAGNOSES: 1. Chest discomfort consistent with unstable angina. 2. Coronary artery disease, status post coronary artery bypass grafting in 2016. 3. Hypertension. 4. Dyslipidemia. 5. Obesity with a BMI of 31. 6. Gastroesophageal reflux disease. 7. History of rheumatoid arthritis. 8. Chronic kidney disease stage 2. PLAN: Plan of care was discussed with the patient in detail. She stated understanding. Job ID: [id number]
--- NOTE | 2018-07-03 17:22 | EKG ---
Test Reason : UNSTABLE ANGINA XFER Blood Pressure : / mmHG Vent. Rate : 067 BPM Atrial Rate : 067 BPM P-R Int : 164 ms QRS Dur : 102 ms QT Int : 448 ms P-R-T Axes : 023 -15 080 degrees QTc Int : 473 ms Normal sinus rhythm Inferior infarct , age undetermined Abnormal ECG No changes Confirmed by ADOLFO MILLER ([id number]), assistant film editor JELENA RAMEY ([id number]) on 07/03/2018 5:22:17 PM Referred By: Confirmed By:ADOLFO MILLER
== END 2018-07-02 15:24 | disposition home or self-care (01) ==
LOC: ERS 05:55 → ERHOLD 06:43 → 2SW 15:55
PROVIDERS: ADMIT Internal Medicine; ATTEND Internal Medicine Cardiovascular Disease
PROC: 4A023N7 Measurement of Cardiac Sampling and Pressure, Left Heart, Percutaneous Approach (ICD-10-PCS; principal; 2018-07-02)
PROC: B2101ZZ Fluoroscopy of Single Coronary Artery using Low Osmolar Contrast (ICD-10-PCS; 2018-07-02)
DX: I25.10 Atherosclerotic heart disease of native coronary artery without angina pectoris (principal); I25.82 Chronic total occlusion of coronary artery; I12.9 Hypertensive chronic kidney disease with stage 1 through stage 4 chronic kidney disease, or unspecified chronic kidney disease; N18.2 Chronic kidney disease, stage 2 (mild); E78.5 Hyperlipidemia, unspecified; E66.9 Obesity, unspecified; Z68.33 Body mass index [BMI] 33.0-33.9, adult; K21.9 Gastro-esophageal reflux disease without esophagitis; I25.5 Ischemic cardiomyopathy; M06.9 Rheumatoid arthritis, unspecified; Z95.1 Presence of aortocoronary bypass graft; Z90.49 Acquired absence of other specified parts of digestive tract; Z88.8 Allergy status to other drugs, medicaments and biological substances; Z79.82 Long term (current) use of aspirin; Z79.02 Long term (current) use of antithrombotics/antiplatelets; Z79.899 Other long term (current) drug therapy; Z98.890 Other specified postprocedural states
CPT/HCPCS: 71260; 80053; 84484 ×2; 85025; 93005; 93455; 96361; 96374; 96375; 99285; C1769; G0378 ×2; 36415; 99152; 99153; J1644; J2250; J2270; J2405; J3010; Q9967

== ENCOUNTER 2018-08-04 14:30 | Inpatient (IN) | payer MEDICARE, BC ==
[2018-08-04 15:17] VITALS: BMI 32.2
[2018-08-04 16:04] LABS: Hemoglobin 14.2 g/dL (12.0-16.0); Mean Corpuscular HGB CONC 34.3 g/dL (32.0-36.0); Mean Corpuscular Hemoglobin 35.1 pg (27.0-31.0); Mean Platelet Volume 6.9 fL (7.4-10.4); Platelet Count 170 thou/uL (130-400); RBC Distribution Width 11.6 % (11.5-14.5); Red Blood Cell (RBC) Count 4.05 mill/uL (4.20-5.40); White Blood Cell (WBC) Count 3.7 thou/uL (4.8-10.8)
[2018-08-04 16:22] LABS: Anion Gap 10 mmol/L (10-20); BUN (Urea Nitrogen) 16 mg/dL (9.8-20.1); Calc. Creatinine Clearance 0 mL/min (70-130); Calcium 9.6 mg/dL (7.8-10.44); Carbon Dioxide 33 mmol/L (23-31); Chloride 101 mmol/L (98-107); Estimated GFR-MDRD 65; Glucose 74 mg/dL (83-110); Sodium 140 mmol/L (136-145)
[2018-08-05] MEDS ORDERED: Fentanyl 100 MCG/2 ML VIAL ONE (06:35)
[2018-08-05] MEDS ORDERED: Neomycin-Polymyxin 1 ML AMP ONE (06:36)
[2018-08-05] MEDS ORDERED: Bupivacaine HCl 0.5%/Epinephrine 1:200,000/PF 30 ml Vial ONE (06:36)
[2018-08-05] MEDS ORDERED: Ketamine 50 MG/ML (10ML VIAL) ONE (07:13)
--- NOTE | 2018-08-05 14:18 | OP ---
DATE OF PROCEDURE: 08/05/2018 PREOPERATIVE DIAGNOSIS: Painful sternal wires. POSTOPERATIVE DIAGNOSIS: Painful sternal wires. PROCEDURE: Sternal wire removal in total. ANESTHESIA: General. ESTIMATED BLOOD LOSS: Minimal. DESCRIPTION OF PROCEDURE: After adequate anesthesia had been obtained, the patient was prepped and draped. A sternal incision was made involving the midportion of the scar. Following this, dissection was carried down to the wires, which were individually twisted, cut, and removed. After removing all the wires, the wound was irrigated and closed in layers. The patient is to be taken to the recovery room in guarded condition. Job ID: [id number]
== END 2018-08-05 10:00 | disposition home or self-care (01) | DRG 909 ==
LOC: SURG A 08-05 05:52 → EDSTATUS 08-05 14:30
PROVIDERS: ADMIT Thoracic Surgery (Cardiothoracic Vascular Surgery); ATTEND Thoracic Surgery (Cardiothoracic Vascular Surgery)
PROC: 0PC00ZZ Extirpation of Matter from Sternum, Open Approach (ICD-10-PCS; principal; 2018-08-05)
DX: T85.848A Pain due to other internal prosthetic devices, implants and grafts, initial encounter (principal); I25.10 Atherosclerotic heart disease of native coronary artery without angina pectoris; Z95.1 Presence of aortocoronary bypass graft; Z98.41 Cataract extraction status, right eye; Z98.42 Cataract extraction status, left eye
CPT/HCPCS: 36415; 80048; 85027; 86850; 86900; 86901; J0670; J0690; J3010

== ENCOUNTER 2018-08-10 10:47 | Emergency (ER) | payer MEDICARE, BC ==
--- NOTE | 2018-08-10 11:22 | RAD ---
Exam: Chest one view: HISTORY: Chest pain COMPARISON: 12/29/2017 FINDINGS: Left ICD. Monitor leads overlie the chest. Heart size is within normal limits. IMPRESSION: No acute intrathoracic disease. Stable from prior study.
[2018-08-10 11:41] LABS: #Eosinphils 0.3 thou/uL (0.0-0.7); #Lymphocytes 1.1 thou/uL (1.20-3.40); #Monocytes 0.5 thou/uL (0.11-0.59); #Neutrophils 2.7 thou/uL (1.40-6.50); %Basophils 0.3 % (0.0-1.0); %Eosinophils 6.7 % (0.0-10.0); %Lymphocytes 24.4 % (21.0-51.0); %Monocytes 9.8 % (0.0-10.0); %Neutrophils 58.8 % (42.0-75.0); Hemoglobin 14.8 g/dL (12.0-16.0); Mean Corpuscular HGB CONC 33.4 g/dL (32.0-36.0); Mean Corpuscular Hemoglobin 33.6 pg (27.0-31.0); Platelet Count 215 thou/uL (130-400); RBC Distribution Width 11.5 % (11.5-14.5); Red Blood Cell (RBC) Count 4.41 mill/uL (4.20-5.40); White Blood Cell (WBC) Count 4.5 thou/uL (4.8-10.8)
[2018-08-10 12:10] LABS: ALT (SGPT) 17 U/L (8-55); AST (SGOT) 19 U/L (5-34); Albumin 3.9 g/dL (3.4-4.8); Alkaline Phosphatase 58 U/L (40-150); Anion Gap 13 mmol/L (10-20); BUN (Urea Nitrogen) 16 mg/dL (9.8-20.1); CK (CPK) 34 U/L (29-168); Calc. Creatinine Clearance 0 mL/min (70-130); Calcium 9.1 mg/dL (7.8-10.44); Carbon Dioxide 27 mmol/L (23-31); Chloride 105 mmol/L (98-107); Estimated GFR-MDRD 69; Globulin 2.5 g/dL (2.4-3.5); Glucose 81 mg/dL (83-110); Protein, Total 6.4 g/dL (6.0-8.3); Sodium 141 mmol/L (136-145)
[2018-08-10] MEDS ORDERED: Morphine 4 MG/ML VIAL ONE (12:40)
[2018-08-10 14:22] LABS: Troponin I Less than 0.010 ng/mL (< 0.028)
== END 2018-08-10 15:06 | disposition home or self-care (01) ==
LOC: ERS 10:47
DX: R07.89 Other chest pain (principal); I25.2 Old myocardial infarction; E78.5 Hyperlipidemia, unspecified; I25.10 Atherosclerotic heart disease of native coronary artery without angina pectoris; Z79.899 Other long term (current) drug therapy; Z79.82 Long term (current) use of aspirin
CPT/HCPCS: 36415; 71045; 80053; 82550; 84484; 85025; 93005; 96374; J2270

== ENCOUNTER 2019-09-05 14:09 | Observation (INO) | payer MEDICARE, BC ==
[2019-09-05] MEDS ORDERED: traMADol HCl 50 MG TAB PO SCH (15:15)
[2019-09-05 15:42] LABS: #Eosinphils 0.1 thou/uL (0.0-0.7); #Monocytes 0.3 thou/uL (0.11-0.59); #Neutrophils 1.8 thou/uL (1.40-6.50); %Eosinophils 3.7 % (0.0-10.0); %Monocytes 9.7 % (0.0-10.0); %Neutrophils 55.7 % (42.0-75.0); Hemoglobin 13.9 g/dL (12.0-16.0); Mean Corpuscular HGB CONC 34.3 g/dL (32.0-36.0); Mean Corpuscular Hemoglobin 35.8 pg (27.0-31.0); Mean Platelet Volume 7.2 fL (7.4-10.4); Platelet Count 169 thou/uL (130-400); RBC Distribution Width 11.7 % (11.5-14.5); Red Blood Cell (RBC) Count 3.87 mill/uL (4.20-5.40); White Blood Cell (WBC) Count 3.3 thou/uL (4.8-10.8)
[2019-09-05 16:04] LABS: Anion Gap 14 mmol/L (10-20); BUN (Urea Nitrogen) 13 mg/dL (9.8-20.1); Calc. Creatinine Clearance 0 mL/min (70-130); Calcium 8.8 mg/dL (7.8-10.44); Carbon Dioxide 25 mmol/L (23-31); Chloride 107 mmol/L (98-107); Estimated GFR-MDRD 73; Glucose 84 mg/dL (83-110); Sodium 142 mmol/L (136-145)
[2019-09-05 16:26] VITALS: BMI 32.5
[2019-09-05] MEDS: Aspirin 81 mg Enteric Coated Tablet PO SCH (20:23)
[2019-09-05] MEDS ORDERED: Morphine 4 MG/ML VIAL SLOW IVP SCH (20:45)
[2019-09-05] MEDS ORDERED: Atorvastatin Calcium 40 MG TAB PO SCH ×2 (21:00→21:32)
[2019-09-05] MEDS ORDERED: Isosorbide Dinitrate 5 MG TAB PO SCH (21:00)
[2019-09-05] MEDS: Metoprolol Tartrate 25 MG TAB PO SCH (21:11)
[2019-09-05] MEDS ORDERED: Nitroglycerin 2% Ointment 1 INCH/1 GM Packet ONE (21:28)
[2019-09-05] MEDS ORDERED: Nitroglycerin 50 MG/250 ML BOT 250 ML IVPB SCH (21:30)
[2019-09-05] MEDS ORDERED: Enoxaparin Sodium 80 MG/0.8 ML SYRINGE SC SCH (21:30)
[2019-09-05] MEDS ORDERED: Nitroglycerin 2% Ointment 1 INCH/1 GM Packet TOP SCH (21:45)
--- NOTE | 2019-09-05 23:34 | HP ---
CHIEF COMPLAINT: Chest pain. HISTORY OF PRESENT ILLNESS: The patient is a pleasant 79-year-old female with past medical history of coronary artery disease status post CABG and recent cardiac cath a little over a year ago that showed occluded [place] vessels, but patent graft vessels. The patient struggles with interrupted angina at baseline, and presented to the ER today due to persistent and angina symptoms with chest heaviness radiating to her left arm. Her symptoms usually resistant to nitroglycerin, but that did not help today. In the ER, a nitroglycerin patch was placed, which led to improvement in her symptoms. REVIEW OF SYSTEMS: Negative except as noted in HPI. PAST MEDICAL HISTORY: Coronary artery disease, congestive heart failure, status post ICD, rheumatoid arthritis. PAST SURGICAL HISTORY: CABG, kidney stone removal, back surgeries, cataract surgery, cholecystectomy, hysterectomy, tonsillectomy, and left hand surgery. SOCIAL HISTORY: The patient denies smoking or illicit drug use. Drinks a glass of wine with dinner every night. PHYSICAL EXAMINATION: GENERAL: The patient is alert and oriented x3. HEENT: Head is normocephalic and atraumatic. Extraocular muscles are intact. NECK: Supple. CHEST: Clear to auscultation bilaterally. CARDIOVASCULAR: Normal S1 and S2. No murmurs, rubs, or gallops. Regular rate and rhythm. ABDOMEN: Soft, nontender, nondistended. NEUROLOGIC: Unrevealing. ASSESSMENT: 1. Chest pain, likely due to an episode of angina. The patient is currently chest pain free. Her symptoms started with rest, so the angina variety is likely unstable. The patient is on guideline-based medical therapy with dual antiplatelets enoxaparin, atorvastatin, and metoprolol. Her pain was persistent overnight so nitroglycerin drip was initiated. We will trend troponins and consult the patient's forensic toxicologist in the morning. 2. History of congestive heart failure. 3. Rheumatoid arthritis. Job ID: [id number] MTDD
[2019-09-06 05:08] LABS: Anion Gap 9 mmol/L (10-20); BUN (Urea Nitrogen) 16 mg/dL (9.8-20.1); Calc. Creatinine Clearance 76 mL/min (70-130); Calcium 8.7 mg/dL (7.8-10.44); Carbon Dioxide 26 mmol/L (23-31); Chloride 108 mmol/L (98-107); Estimated GFR-MDRD 72; Glucose 101 mg/dL (83-110); Potassium 3.9 mmol/L (3.5-5.1); Sodium 139 mmol/L (136-145)
[2019-09-06 05:40] LABS: #Eosinphils 0.1 thou/uL (0.0-0.7); #Lymphocytes 0.8 thou/uL (1.20-3.40); #Monocytes 0.3 thou/uL (0.11-0.59); #Neutrophils 1.8 thou/uL (1.40-6.50); %Eosinophils 4.6 % (0.0-10.0); %Lymphocytes 26.9 % (21.0-51.0); %Monocytes 10.5 % (0.0-10.0); Hemoglobin 12.4 g/dL (12.0-16.0); Mean Corpuscular HGB CONC 32.9 g/dL (32.0-36.0); Mean Corpuscular Hemoglobin 34.4 pg (27.0-31.0); Mean Platelet Volume 7.1 fL (7.4-10.4); Platelet Count 165 thou/uL (130-400); RBC Distribution Width 11.6 % (11.5-14.5); Red Blood Cell (RBC) Count 3.62 mill/uL (4.20-5.40); White Blood Cell (WBC) Count 3.1 thou/uL (4.8-10.8)
[2019-09-06] MEDS ORDERED: Enoxaparin Sodium 80 MG/0.8 ML SYRINGE SC SCH ×2 (09:00→10:47)
[2019-09-06] MEDS ORDERED: Enoxaparin Sodium 40 MG/0.4 ML SYRINGE SC SCH ×2 (09:00→11:00)
[2019-09-06] MEDS: Nitroglycerin 0.4 MG TAB (25 Tab Bottle) SL PRN ×2 (09:33→09:44)
[2019-09-06] MEDS: Potassium Chloride 10 MEQ TAB PO SCH (09:43)
[2019-09-06] MEDS: Furosemide 40 MG TAB PO SCH ×2 (09:43→13:29)
[2019-09-06] MEDS: Metoprolol Tartrate 25 MG TAB PO SCH ×2 (09:43→20:38)
[2019-09-06] MEDS ORDERED: Isosorbide Mononitrate (ER) 30 MG TAB PO SCH (11:00)
--- NOTE | 2019-09-06 16:03 | CON ---
DATE OF CONSULTATION: PRIMARY WEATHER FORECASTER: Dr. Shaquille Cheatham. REASON FOR CONSULTATION: Severe chest pain and pressure. HISTORY OF PRESENT ILLNESS: Ms. Villafana is an 79-year-old woman with history of coronary artery disease and chest pain. She did undergo coronary artery bypass grafting and had subsequent re-evaluation with cardiac catheterization. She was found to have an occluded right coronary artery with no graft to that vessel. An attempt was made to open the vessel with a chronic total occlusion, that was not successful in terms of opening that. She was continued to have chest pain very frequently since then. She did undergo cardiac catheterization in 2 separate occasions, most recently in 2019. She was found to have grafts patent to all the major arteries in the left side, but the graft to the right coronary artery filled via collaterals. Specifically, the findings of the catheterization were occlusion of the [place] coronary arteries, patent saphenous vein graft to diagonal, patent saphenous vein graft to obtuse marginal, patent internal mammary to the LAD, the right coronary fills [id number] collaterals. The patient has even had removal of her chest wires that did not resolve the chest pain. The patient recently came to the hospital with increasing amounts of chest pain and pressure, which does get somewhat better with nitrates, but does not totally resolve. MEDICATIONS: 1. Ranolazine, she thinks taking 500 mg twice a day, but this is listed 1000 twice a day. 2. Aspirin. 3. Atorvastatin. 4. Clopidogrel. 5. Isosorbide 15 mg a day. 6. Metoprolol 12.5 mg a day. ALLERGIES: TO HYDROCHLOROQUINE AND LEFLUNOMIDE. REVIEW OF SYSTEMS: CONSTITUTIONAL: No significant weight gain or loss. VISION: No changes. HEARING: No changes. PULMONARY: No cough or wheezing. GASTROINTESTINAL: No nausea, vomiting, or diarrhea. SKIN: No rashes. NEUROLOGIC: No unilateral weakness or numbness. PSYCHIATRIC: No unusual depression or anxiety. PHYSICAL EXAMINATION: VITAL SIGNS: Blood pressure is 114/57, pulse 64 and regular. HEENT: Eyes, sclerae are nonicteric. Mouth, mucous membranes are moist. NECK: Supple. No lymphadenopathy. LUNGS: Clear. CARDIAC: Normal S1, normal S2. There is no murmur, rub, or gallop. ABDOMEN: Soft and nontender. EXTREMITIES: Warm and dry. No clubbing. No cyanosis. No edema. LABORATORY DATA: Hemoglobin is 12.4. Troponin 0.17. ASSESSMENT: 1. Chest pain and pressure. The description sounds like angina, but it is intractable. 2. She does have a chronically occluded coronary artery, which fills via collaterals. PLAN: 1. I will review the cardiac catheterization films. 2. Ranexa dose will be clarified. 3. She is going to have an echocardiogram done in our clinic tomorrow. We will go ahead and do that here in the hospital. 4. The patient is currently on enoxaparin. We will go ahead and cut the dose down. It does not sound like unstable angina, and in turns, what is likely to be a thrombus in a vessel. More likely if it is her heart, it is due to a chronically occluded vessel with collaterals. Job ID: [id number]
--- NOTE | 2019-09-06 17:40 | PDOC.HOSPP ---
- Subjective Encounter Date: 09/06/19 Subjective: Chest pain improving. - Objective Vital Signs & Weight: Vital Signs (12 hours) Temp Pulse Resp BP BP BP Pulse Ox 09/06/19 16:00 97.8 F 59 L 20 102/56 L 96 09/06/19 11:04 98.1 F 59 L 20 107/58 L 100 09/06/19 09:34 107/54 L 09/06/19 07:32 97.4 F L 65 16 114/57 L 98 Weight Weight 184 lb 9.6 oz I&O: 09/05/19 09/06/19 09/07/19 06:59 06:59 06:59 Intake Total 120 241 Output Total 200 Balance 120 41 Result Diagrams: 09/06/19 04:30 09/06/19 04:30 Hospitalist ROS - Medication Medications: Active Medications Generic Name Dose Route Start Last Admin Trade Name Freq PRN Reason Stop Dose Admin Aspirin 81 mg 09/05/19 21:00 09/05/19 20:23 Ecotrin PO 81 mg HS LAKSHMI Administration Furosemide 40 mg 09/06/19 09:00 09/06/19 13:29 Lasix PO 40 mg 0900,1400 LAKSHMI Administration Metoprolol Tartrate 12.5 mg 09/05/19 21:00 09/06/19 09:43 Lopressor PO 12.5 mg BID LAKSHMI Administration Nitroglycerin 0.4 mg 09/06/19 09:25 09/06/19 09:44 Nitrostat SL 1 tab Q5MIN PRN Administration Chest Pain Potassium Chloride 10 meq 09/06/19 09:00 09/06/19 09:43 Klor-Con 10 PO 10 meq QAM LAKSHMI Administration Ranolazine 1,000 mg 09/05/19 21:00 09/06/19 09:42 Ranexa PO 1,000 mg BID LAKSHMI Administration - Exam General Appearance: awake alert ENT: normocephalic atraumatic Neck: supple Heart: RRR Respiratory: normal chest expansion, no tachypnea Extremities: no cyanosis, no clubbing Neurological: cranial nerve grossly intact, no focal deficits Hosp A/P (1) Angina pectoris Code(s): I20.9 - ANGINA PECTORIS, UNSPECIFIED Status: Acute (2) Rheumatoid arthritis Code(s): M06.9 - RHEUMATOID ARTHRITIS, UNSPECIFIED Status: Acute (3) History of CHF (congestive heart failure) Code(s): Z86.79 - PERSONAL HISTORY OF OTHER DISEASES OF THE CIRCULATORY SYSTEM Status: Acute - Plan The patient is chest pain improving with nitroglycerin. She remains on medical therapy with aspirin,plavix, atorvastatin, nitroglycerin , metoprolol, and Ranexa. Enoxaparin has been reduced. Echo pending.
[2019-09-06] MEDS: Aspirin 81 mg Enteric Coated Tablet PO SCH (20:26)
[2019-09-06] MEDS: Enoxaparin Sodium 40 MG/0.4 ML SYRINGE SC SCH (20:28)
[2019-09-07 05:37] LABS: Hemoglobin 13.9 g/dL (12.0-16.0); Platelet Count 163 thou/uL (130-400)
[2019-09-07] MEDS: Metoprolol Tartrate 25 MG TAB PO SCH (08:44)
[2019-09-07] MEDS: Potassium Chloride 10 MEQ TAB PO SCH (08:44)
[2019-09-07] MEDS: Furosemide 40 MG TAB PO SCH ×2 (08:44→14:12)
[2019-09-07] MEDS: Enoxaparin Sodium 40 MG/0.4 ML SYRINGE SC SCH (08:45)
[2019-09-07] MEDS ORDERED: Isosorbide Mononitrate (ER) 30 MG TAB PO SCH (09:00)
[2019-09-07] MEDS ORDERED: Clopidogrel Bisulfate 75 MG TAB PO SCH (09:00)
[2019-09-07 11:45] VITALS: BP 119/68; TEMP 98.5
--- NOTE | 2019-09-07 13:13 | PDOC.CPN ---
- Subjective Date: 09/07/19 Time: 13:10 Interval history: She is doing better. No chest pain since yesterday. - Review of Systems General: denies: fever/chills, weight/appetite/sleep changes, night sweats, fatigue Respiratory: denies: cough, congestion, shortness of breath, exercise intolerance Cardiovascular: reports: edema. denies: chest pain, palpitation, paroxysmal nocturnal dyspnea, orthopnea Gastrointestinal: denies: nausea, vomiting, diarrhea, constipation, abd pain, GI bleeding Musculoskeletal: denies: pain, tenderness, stiffness, swelling, arthritis/ arthralgias Neurological: denies: numbness, syncope, seizure, weakness - Objective Allergies/Adverse Reactions: Allergies Allergy/AdvReac Type Severity Reaction Status Date / Time hydroxychloroquine Allergy Verified 07/04/19 23:58 [From Plaquenil] leflunomide Allergy N/V/D, Verified 07/04/19 23:58 CONFUSION micropore tape Allergy Uncoded 07/04/19 23:58 Visit Medications: Current Medications Aspirin (Ecotrin) 81 mg PO [facility] Last Admin: 09/06/19 20:26 Dose: 81 mg Atorvastatin Calcium (Lipitor) 80 mg PO [facility] Last Admin: 09/06/19 20:26 Dose: 80 mg [facility]id[facility]) [facility] [place] Admin: 09/07/19 08:44 Dose: 75 mg Enoxaparin Sodium (Lovenox) 40 mg SC 0900,2100 [facility] Last Admin: 09/07/19 08:45 Dose: 40 mg Furosemide (Lasix) 40 mg PO 0900,1400 [facility] Last Admin: 09/07/19 08:44 Dose: 40 mg Isosorbide Mononitrate (Imdur Er) 30 mg PO DAILY [facility] Last Admin: 09/07/19 08:44 Dose: 30 mg Metoprolol Tartrate (Lopressor) 12.5 mg PO BID [facility] Last Admin: 09/07/19 08:44 Dose: 12.5 mg Nitroglycerin (Nitrostat) 0.4 mg SL Q5MIN PRN PRN Reason: Chest Pain Last Admin: 09/06/19 09:44 Dose: 1 tab Potassium Chloride (Klor-Con 10) 10 [facility] [place] Admin: 09/07/19 08:44 Dose: 10 meq Ranolazine (Ranexa) 1,000 mg PO BID [facility] Last Admin: 09/07/19 08:44 Dose: 1,000 mg Sodium Chloride (Flush - Normal Saline) 10 ml IVF Q12HR [facility] Last Admin: 09/07/19 08:45 Dose: 10 ml Sodium Chloride (Flush - Normal Saline) 10 ml IVF PRN PRN PRN Reason: Saline Flush Tramadol HCl (Ultram) 50 mg PO ASDIR [facility] Vital Signs & Weight: Vital Signs Temp Pulse Resp BP BP Pulse Ox 09/07/19 11:44 98.5 F 58 L 16 119/68 98 09/07/19 07:30 97.5 F L 65 16 112/63 97 09/07/19 03:58 97.7 F 65 12 104/63 96 Weight 183 lb 6.4 oz - Physical Exam General: alert & oriented x3 HEENT: mucus membranes moist Neck: supple neck Cardiac: regular rate and rhythm Lungs: normal breath sounds Neuro: grossly intact Abdomen: active bowel sounds Extremities: 1+ LE edema Skin: clear Musculoskeletal: no pain - Labs Result Diagrams: 09/07/19 04:58 09/07/19 04:58 Troponin/CKMB Troponin I 0.014 ng/mL (< 0.028) 09/05/19 21:07 - Telemetry Sinus rhythms and dysrhythmias: sinus rhythm - Assessment/Plan Assessment/Plan: 1. Chest pain, chronic 2. CAD, no ACS 3. Ischemic CM EF at 40-45% on echo today 4. s/p CABG 5. S/P AICD. PLAN: - Continue current regimen for now. - EF stable, may discharge home today. - Follow up in 1-2 months.
--- NOTE | 2019-09-07 17:15 | DIS ---
DATE OF ADMISSION: 09/05/2019 DATE OF DISCHARGE: 09/07/2019 DISCHARGE DIAGNOSES: 1. Chest pain due to chronic angina. 2. Coronary artery disease. 3. Ischemic cardiomyopathy with ejection fraction of 40% to 45%. 4. History of rheumatoid arthritis. DISCHARGE MEDICATIONS: 1. Metoprolol succinate 12.5 mg orally daily. 2. Aspirin 81 mg orally nightly. 3. Atorvastatin 40 mg orally nightly. 4. Plavix 75 mg orally daily. 5. Lasix 40 mg orally daily. 6. Potassium chloride 10 mEq orally daily. 7. Ranexa 1000 mg orally twice daily. 8. Tramadol 50 mg orally daily as needed for pain. 9. Isosorbide dinitrate 50 mg orally daily. 10. Nitroglycerin 0.4 mg sublingual q.5 minutes as needed for pain. 11. Pantoprazole 40 mg orally daily. HISTORY OF PRESENT ILLNESS AND HOSPITAL COURSE: The patient is an 79-year-old female with past medical history of coronary artery disease, status post CABG and recent cardiac catheterization a little over a year ago, which showed occluded [place] vessels, but patent grafts, who presented to the hospital with worsening of her chest pain. The patient experiences chronic angina, but her symptoms on the day of presentation were persistent. It was initially thought that her symptoms represented unstable angina, and she was started on guideline-directed therapy including antiplatelet therapy and anticoagulation. The patient was subsequently seen by Cardiology, and acute coronary syndrome was ruled out, and her symptoms were deemed to be an exacerbation of her underlying angina. Her medications were adjusted as noted above on the medication list. Echocardiogram was performed showing EF of 40% to 45%. The patient is already on Lasix and Toprol-XL. The patient's chucker did not recommend adding ZACHERY inhibitor at this time as her EF is greater than 40%. Job ID: [id number]
== END 2019-09-07 15:15 | disposition home or self-care (01) ==
LOC: ERS 14:09 → 2NO 15:02
PROVIDERS: ADMIT Internal Medicine; ATTEND Internal Medicine
DX: I25.119 Atherosclerotic heart disease of native coronary artery with unspecified angina pectoris (principal); I25.82 Chronic total occlusion of coronary artery; I25.5 Ischemic cardiomyopathy; M06.9 Rheumatoid arthritis, unspecified; I50.9 Heart failure, unspecified; J45.909 Unspecified asthma, uncomplicated; I25.2 Old myocardial infarction; Z79.02 Long term (current) use of antithrombotics/antiplatelets; Z79.82 Long term (current) use of aspirin; Z79.891 Long term (current) use of opiate analgesic; Z79.899 Other long term (current) drug therapy; Z88.8 Allergy status to other drugs, medicaments and biological substances; Z91.048 Other nonmedicinal substance allergy status; Z95.1 Presence of aortocoronary bypass graft; Z95.5 Presence of coronary angioplasty implant and graft; Z95.810 Presence of automatic (implantable) cardiac defibrillator
CPT/HCPCS: 80048 ×2; 82565; 84484 ×2; 85014; 85018; 85025 ×2; 85049; 93005 ×2; 93306; 96372 ×3; 96374; 99285; G0378 ×4; 36415; 93010; J1650; J2270

== ENCOUNTER 2020-01-20 13:39 | Inpatient (IN) | payer MEDICARE, BC ==
[2020-01-20 14:46] LABS: Hemoglobin 13.9 g/dL (12.0-16.0); Mean Corpuscular HGB CONC 32.8 g/dL (32.0-36.0); Mean Corpuscular Hemoglobin 34.6 pg (27.0-31.0); Mean Platelet Volume 7.4 fL (7.4-10.4); Platelet Count 143 thou/uL (130-400); RBC Distribution Width 12.6 % (11.5-14.5); Red Blood Cell (RBC) Count 4.02 mill/uL (4.20-5.40); White Blood Cell (WBC) Count 3.3 thou/uL (4.8-10.8)
--- NOTE | 2020-01-20 14:46 | RAD ---
PORTABLE CHEST: HISTORY: Chest pain. COMPARISON: 11/23/2019 exam. FINDINGS: Heart size appears slightly enlarged. A pacemaker is present. The lungs are clear of any infiltrati ve process. IMPRESSION: Mild cardiomegaly. No signs of failure. POS: BONY
[2020-01-20 14:47] LABS: #Eosinphils 0.1 thou/uL (0.0-0.7); #Lymphocytes 0.8 thou/uL (1.20-3.40); #Monocytes 0.3 thou/uL (0.11-0.59); #Neutrophils 2.1 thou/uL (1.40-6.50); %Basophils 0.3 % (0.0-1.0); %Eosinophils 2.4 % (0.0-10.0); %Lymphocytes 24.7 % (21.0-51.0); %Monocytes 10.2 % (0.0-10.0); %Neutrophils 62.3 % (42.0-75.0)
[2020-01-20 15:04] LABS: MDiff Complete? YES; Macrocytosis SLIGHT = 6-15 cells (100X) (0-5/hpf); Platelet Morphology Comment Appears Adequate; Polychromasia SLIGHT = 2-3 cells (100X) (0-2/hpf)
[2020-01-20 15:17] LABS: ALT (SGPT) 17 U/L (8-55); AST (SGOT) 27 U/L (5-34); Albumin 3.5 g/dL (3.4-4.8); Alkaline Phosphatase 57 U/L (40-110); Anion Gap 12 mmol/L (10-20); BUN (Urea Nitrogen) 13 mg/dL (9.8-20.1); Bilirubin, Total 0.9 mg/dL (0.2-1.2); Calc. Creatinine Clearance 0 mL/min (70-130); Calcium 8.8 mg/dL (7.8-10.44); Carbon Dioxide 21 mmol/L (23-31); Chloride 108 mmol/L (98-107); Estimated GFR-MDRD 74; Globulin 2.9 g/dL (2.4-3.5); Glucose 95 mg/dL (83-110); Potassium 3.9 mmol/L (3.5-5.1); Protein, Total 6.4 g/dL (6.0-8.3); Sodium 137 mmol/L (136-145)
--- NOTE | 2020-01-20 15:52 | PDOC.FPRHP ---
- History of Present Illness Chief Complaint: chest pain History of Present Illness: 79 y/o F PMHx CAD s/p mutli-vessel CABG and several stents as recent as 1 year ago presents for worsening of her chronic chest pain. She reports that this AM after breakfast she had an episode of sudden onset, central chest pain with rad iation to the L arm. Pain persisted, rated 7/10 at that time, and she subsequently developed SOB and diaphoresis. She took 2 doses of nitro at home, but this did not relieve her pain and she called EMS. She was given 4 baby ASA by EMS and taken to [facility] ED where she was given morphine for her chest pain. She reports that her pain is resolved at this time. Chest pain onset while sitting and reading today. She experiences chest pain very frequently, and keeps a journal of her chest pain. Reports chest pain that required her to take nitro on 7 of the past 10 days. Reports that usually her pain is pressure-like in nature and slowly spreads across her chest, but her pain today was more sudden a nd sharp in onset. Reports it started shortly after breakfast, ate cereal and orange juice. She takes protonix at home, denies symptoms of acid reflux, and has had extensive GI workup in the past approximately 2-3 years ago. She denies radiation of the pain to her back. She does endorse increased swelling in her lower extremities, L greater than R. She also reports that her L leg is where she has had veins harvested from in the past for her prior CABG. She sees Dr. Cheatham, and last saw him 2 weeks ago in clinic. She states he has been adjusting her medications for some time to maintain her blood pressure while controlling her chest pain. ED Course: Per patient, 4 baby ASA from EMS and morphine in ED; took 2 nitro prior to arrival. EKG: no ST changes, Initial troponin neg - Allergies/Adverse Reactions Allergies Allergy/AdvReac Type Severity Reaction Status Date / Time hydroxychloroquine Allergy Verified 01/20/20 18:06 [From Plaquenil] leflunomide Allergy N/V/D, Verified 01/20/20 18:06 CONFUSION micropore tape Allergy Uncoded 01/20/20 18:06 - Home Medications Medication Instructions Recorded Confirmed Type Aspirin [Ecotrin Low Strength] 81 mg PO HS 07/30/17 01/20/20 History Atorvastatin Calcium [Lipitor] 40 mg PO HS 07/30/17 01/20/20 History Clopidogrel Bisulfate [Plavix] 75 mg PO QAM 07/30/17 01/20/20 History Furosemide 40 mg PO DAILY 07/30/17 01/20/20 History Potassium Chloride [K-Tab ER] 10 meq PO QAM 07/30/17 01/20/20 History Ranolazine [Ranexa] 1,000 mg PO BID 07/30/17 01/20/20 History Restasis [Restasis Ophth Drops] 1 drop EA EYE BID 07/30/17 01/20/20 History Nitroglycerin [Nitrostat] 0.4 mg SL Q5MIN PRN 09/02/17 01/20/20 History traMADol HCl [Tramadol HCl] 1 tab PO DAILY 08/04/18 01/20/20 History Ascorbic Acid [Vitamin C] 250 mg PO DAILY 09/05/19 01/20/20 History Cholecalciferol (Vitamin D3) 5,000 unit PO DAILY 09/05/19 01/20/20 History [Vitamin D3] Metoprolol Succinate [Toprol XL] 0.5 tab PO DAILY 09/05/19 01/20/20 History Pantoprazole [Protonix] 40 mg PO DAILY 09/05/19 01/20/20 History Isosorbide Mononitrate [Imdur ER] 60 mg PO DAILY 01/20/20 01/20/20 History - History PMHx:CAD s/p CABGx (2015), HFrEF s/p AICD (echo 08/2019 EF 40-45%) PSHx: CABG, back surgeries, cataract, cholcystectomy, hysterectomy, tonsillectomy, left hand surgery, nephrolithiasis removal FHx: noncontributory Social: Denies tobacco or drug use. Drinks glass of wine with dinner every night - Review of Systems General: denies: fever/chills, fatigue Eyes: denies: vision changes ENT: reports: rhinorrhea. denies: nasal congestion Respiratory: reports: cough (dry), shortness of breath. denies: congestion Cardiovascular: reports: chest pain. denies: edema Gastrointestinal: denies: nausea, vomiting, diarrhea, constipation, abdominal pain Genitourinary: denies: dysuria Skin: denies: rashes Musculoskeletal: reports: pain. denies: tenderness Neurological: denies: numbness, weakness Psychological: denies: anxiety, depression - Vital signs BP: 105/73 HR: 76 RR: 21 Tmax: 99.0 F Pox: % on [98 Room Air] Wt: [86.8 kg] - Physical Exam Constitutional: NAD, awake, alert and oriented HEENT: normocephalic and atraumatic, grossly normal vision, grossly normal hearing, MMM Neck: supple Heart: RRR, normal S1/S2, pulses present, no edema Lungs: CTAB, no respiratory distress, no wheezing Abdomen: soft, non-tender Musculoskeletal: normal structure, normal tone Neurological: no focal deficit Skin: no rash/lesions Heme/Lymphatic: no unusual bruising or bleeding Psychiatric: normal mood and affect, good judgment and insight, intact recent and remote memory FMR H&P: Results - Labs Result Diagrams: 01/20/20 14:39 01/20/20 14:39 Lab results: WBC 3.3 thou/uL (4.8-10.8) L 01/20/20 14:39 Hgb 13.9 g/dL (12.0-16.0) 01/20/20 14:39 Hct 42.2 % (36.0-47.0) 01/20/20 14:39 MCV 105.0 fL (78.0-98.0) H 01/20/20 14:39 Plt Count 143 thou/uL (130-400) 01/20/20 14:39 Neutrophils % 62.3 % (42.0-75.0) 01/20/20 14:39 Sodium 137 mmol/L (136-145) 01/20/20 14:39 Potassium 3.9 mmol/L (3.5-5.1) 01/20/20 14:39 Chloride 108 mmol/L (98-107) H 01/20/20 14:39 Carbon Dioxide 21 mmol/L (23-31) L 01/20/20 14:39 BUN 13 mg/dL (9.8-20.1) 01/20/20 14:39 Creatinine 0.75 mg/dL (0.6-1.1) 01/20/20 14:39 Glucose 95 mg/dL (83-110) 01/20/20 14:39 Calcium 8.8 mg/dL (7.8-10.44) 01/20/20 14:39 Total Bilirubin 0.9 mg/dL (0.2-1.2) 01/20/20 14:39 AST 27 U/L (5-34) 01/20/20 14:39 ALT 17 U/L (8-55) 01/20/20 14:39 Alkaline Phosphatase 57 U/L (40-110) 01/20/20 14:39 Serum Total Protein 6.4 g/dL (6.0-8.3) 01/20/20 14:39 Albumin 3.5 g/dL (3.4-4.8) 01/20/20 14:39 - EKG Interpretation EKG: No ST segment changes; end notching of QRS FMR H&P: A/P - Plan Atypical chest pain, ACS r/o Suspect related to chronic angina which seems to be unstable. Initial troponin negative, EKG without acute ST segment changes. Last echo 06/2019 with EF 40-45%. Lipid panel 06/2019 with LDL 78, TG 221. s/p AICD. - admit to tele obs - trend trop x 1 more - f/u Mg, phos, TSH - continue home statin - continue home ranexa, nitro, imdur - will monitor on tele and consult cardiology in AM Heart Failure without acute exacerbation Last echo as above. - will continue home medications - continue to monitor Lower extremity edema Pitting edema without pain or erythema, L > R. - RLE US r/o DVT, although suspect chronic venous insufficiency s/p surgical vein harvesting Disposition/LOS: tele obs < 48 hours FMR H&P: Upper Level - Plan Date/Time: 01/20/20 1550 IDonita, have evaluated this patient and agree with findings/plan as outlined by manager of internal audit resident. Pertinent changes/additions are listed here. 79 yo F with PMH significant CAD s/p 3 vessel CABG and stentsx5 presents for anginal chest pain. She does have long history of chest pain, Notes today had sudden onset sharp central chest pain, radiating to L arm. Started at rest. Associated with SOB, diaphoresis. Took nitro at home. Went to [facility] ED, given ASA, morphine, nitro paste. Had reported negative trop and transferred here for further monitoring. Dental Equipment Repairer is Dr. Cheatham, last appt with him 2 weeks ago PMH: CAD, HFrEF s/p AICD, RA, [place] (2016), HLD VS: 107/59, 68, 18, 98.3, 99% on RA, 84kg PE: Gen: NAD HEENT: Moist MM Heart: RRR, no murmurs, trace pitting edema Lungs: CTAB, no wheezing. No increased work of breathing Abd: soft, nontender, BS+, no masses or hernias Ext: no cyanosis or edema Skin: no rashes Psych: AOx3 Unstable angina, r/o ACS - Patient with significant CAD with long history of anginal chest pain - Chest pain has now improved, received morphine, nitro asa, in outside ED - Reported negative trop in outside ED, trop neg x1 here, will repeat one more - Continue home medications - Monitor on telemetry overnight - EKG NSR, no acute ST changes HFrEF s/p AICD - Last echo 08/2019 EF 40-45%, 1/3 diastolic dysfunction - Appears euvolemic Diet: HH, NPO @ midnight IVF: SL PCP: Honorio [facility] Attending: Michelle Dispo: admit to telemetry for observation, expected stay <48 hrs. Trend 1 more trop, monitor on telemetry, consult cardiology in am Addendum - Attending - Attending Attestation Date/Time: 01/20/20 2822 I personally evaluated the patient and discussed the management with Dr. Linares/Danish. I agree with the History, Examination, Assessment and Plan documented above with any addition or exceptions noted below.
[2020-01-20 17:50] LABS: Troponin I Less than 0.010 ng/mL (< 0.028)
[2020-01-20 18:11] VITALS: BMI 34.9
[2020-01-20 18:21] LABS: Magnesium 1.9 mg/dL (1.6-2.6); Phosphorus 3.2 mg/dL (2.3-4.7)
[2020-01-20] MEDS: Nitroglycerin 0.4 MG TAB (25 Tab Bottle) ONE ×2 (18:50→19:12)
[2020-01-20 19:41] LABS: Troponin I Less than 0.010 ng/mL (< 0.028)
[2020-01-20] MEDS: Nitroglycerin 0.4 MG TAB (25 Tab Bottle) SL PRN ×3 (19:46→20:03)
[2020-01-20] MEDS: Atorvastatin Calcium 40 MG TAB PO SCH (19:58)
--- NOTE | 2020-01-20 20:17 | PDOC.BPN ---
- Brief Progress Note Encounter Date: 01/20/20 Encounter Time: 18:55 The residents were paged because Ms. Nomi (r) started having centralized, burning CP with mild radiation to her L arm, rated as 5/10 pain. This pain was the same as the CP she was experiencing this morning for which she came to the ED, but that pain resolved around noon and then started again at about 1840 when she notified her nurse. She endorsed some SOB but denied diaphoresis. At that time, her BP was 113/65, HR was in the 80s, and telemetry showed no changes. After about 15 minutes the pain was already improving but she was given SL nitroglycerin, which is a home medication. A repeat troponin was ordered and a stat EKG was obtained which was unchanged from the previous one obtained at ~1500.
[2020-01-20] MEDS ORDERED: Lorazepam 0.5 MG TAB PO SCH (21:00)
--- NOTE | 2020-01-20 21:42 | PDOC.BPN ---
- Brief Progress Note Encounter Date: 01/20/20 Encounter Time: 20:35 The residents received a page at 2030 regarding a second episode of CP. The patient started having stabbing pressure, centralized CP with radiation to her L shoulder and L jaw, rated as 8-9/10 at 1945. 3 rounds of SL nitro were given with mild decrease in pain to 6-7/10. A repeat EKG was obtained which was unchanged from the previous two. A repeat trop was ordered and is pending, but her past 3 were <0.01. Her BP remained nml ranging from 114-135/56-67, with a minimal SBP change of 6mmHg between her arms. Dr. Matos was contacted for any further recommendations. She believes the pain is not cardiac in nature given the lack of change in trops and EKG. She recommended attempting management from a different angle. A GI cocktail, small dose of Ativan, and Kpad were ordered. Will continue to monitor.
[2020-01-20] MEDS: Aspirin 81 mg Enteric Coated Tablet PO SCH (22:04)
[2020-01-21 01:18] LABS: Troponin I Less than 0.010 ng/mL (< 0.028)
[2020-01-21] MEDS ORDERED: Lidocaine 2% Viscous Solution 10 ML, Aluminum & Magnesium Hydroxide 30 ML SSW SCH (02:00)
[2020-01-21 05:37] LABS: Anion Gap 11 mmol/L (10-20); BUN (Urea Nitrogen) 13 mg/dL (9.8-20.1); Calc. Creatinine Clearance 78 mL/min (70-130); Calcium 8.6 mg/dL (7.8-10.44); Carbon Dioxide 25 mmol/L (23-31); Chloride 109 mmol/L (98-107); Estimated GFR-MDRD 71; Glucose 104 mg/dL (83-110); Potassium 3.9 mmol/L (3.5-5.1); Sodium 141 mmol/L (136-145)
--- NOTE | 2020-01-21 06:21 | PDOC.FM ---
- Subjective Subjective: Overnight, had additional episodes of chest pain which were not relieved by nitro. She was given ativan once and slept well after this. This morning, she is having recurrence of the pain after getting up and going to the bathroom. She is also feeling mildly SOB. /10 pain. States she would take nitro for this pain usually at home. Describe as pressure like and spreading across her chest. She denies diaphoresis, nausea, vomiting. - Objective Vital Signs & Weight: Vital Signs (12 hours) Temp Pulse Resp BP BP Pulse Ox 01/21/20 04:26 97.6 F 75 11 L 138/63 97 01/21/20 00:26 98.1 F 72 11 L 112/57 L 98 01/20/20 20:08 72 114/61 98 01/20/20 20:03 71 118/58 L 99 01/20/20 19:57 77 114/59 L 98 01/20/20 19:45 97.9 F 70 12 118/63 100 01/20/20 19:14 75 114/55 L 01/20/20 18:50 70 130/60 Weight Weight 86.8 kg I&O: 01/19/20 01/20/20 01/21/20 06:59 06:59 06:59 Intake Total 240 Balance 240 Result Diagrams: 01/20/20 14:39 01/21/20 04:24 EKG Reviewed by me: Yes (no events on tele) Phys Exam - Physical Examination Constitutional: NAD HEENT: moist MMs Respiratory: clear to auscultation bilateral Cardiovascular: RRR, no significant murmur Gastrointestinal: soft, non-tender, no distention, positive bowel sounds Musculoskeletal: pulses present trace LLE edema chest non-tender to palpation Neurological: non-focal, moves all 4 limbs Psychiatric: A&O x 3 Deviation from normal: appears anxious Skin: no rash Dx/Plan - Plan Plan: Atypical chest pain, ACS r/o Recurrence of chest pain overnight last night. No changes noted on tele, repeat EKG wnl, and troponin negative x 3. Pain not relieved by nitro per patient. She was given ativan, unclear if this helped her pain. GI cocktail was ordered but was not administered until after her symptoms had resolved. She continues to have intermittent pain. Extensive cardiac history. - Considering adjustment of home regimen given frequency of pain. Will consult cardiology, appreciate further recommendations. - Symptoms do not seem to be MSK in origin nor are they consistent with acid reflux. May consider additional outpatient workup for esophageal spasm if symptoms are not improved. Heart Failure without acute exacerbation Last echo as above. - will continue home medications - continue to monitor Lower extremity edema Pitting edema without pain or erythema, L > R. Likely 2/2 chronic venous insufficiency s/p surgical vein harvesting - US r/o DVT was negative Addendum - Attending - Attending Attestation Date/Time: 01/21/20 [id number] I personally evaluated the patient and discussed the management with Dr. Linares. I agree with the History, Examination, Assessment and Plan documented above with any addition or exceptions noted below. The patient was able to sleep after episodes of chest pain overnight. She had cardiac enzymes which were negative and ekg's were unchanged. I do not think the pain is cardiac in nature despite her cardiac history. Nitroglycerin did not help any. When I saw the patient this morning, she denied current chest pain. Will consult cardiology for further evaluation of chest pain.
--- NOTE | 2020-01-21 07:25 | ULT ---
Venous duplex sonogram left lower extremity HISTORY: Left leg pain and edema. FINDINGS: The left common femoral vein and greater saphenous junction were evaluated along with the f emoral, deep femoral, popliteal, and posterior tibial veins. There is good color and spectral Doppler flow, compression, and augmentation. IMPRESSION : Normal exam.
[2020-01-21] MEDS: Potassium Chloride 10 MEQ TAB PO SCH (08:08)
[2020-01-21] MEDS: Ascorbic Acid 500 mg Chewable Tablet PO SCH (08:09)
[2020-01-21] MEDS: Furosemide 40 MG TAB PO SCH (08:09)
[2020-01-21] MEDS: traMADol HCl 50 MG TAB PO SCH (08:09)
[2020-01-21] MEDS: Clopidogrel Bisulfate 75 MG TAB PO SCH (08:09)
[2020-01-21] MEDS: Enoxaparin Sodium 40 MG/0.4 ML SYRINGE SC SCH (08:10)
[2020-01-21] MEDS ORDERED: hydrOXYzine 10 MG TAB PO SCH (11:30)
[2020-01-21] MEDS ORDERED: Docusate 100 MG CAP PO PRN (16:04)
[2020-01-21] MEDS: Aspirin 81 mg Enteric Coated Tablet PO SCH (19:35)
[2020-01-21] MEDS: Atorvastatin Calcium 40 MG TAB PO SCH (19:36)
[2020-01-22] MEDS ORDERED: Lidocaine 2% Viscous Solution 10 ML, Aluminum & Magnesium Hydroxide 30 ML SSW SCH (05:00)
[2020-01-22 06:32] LABS: Anion Gap 10 mmol/L (10-20); BUN (Urea Nitrogen) 15 mg/dL (9.8-20.1); Calc. Creatinine Clearance 75 mL/min (70-130); Carbon Dioxide 27 mmol/L (23-31); Chloride 106 mmol/L (98-107); Estimated GFR-MDRD 72; Glucose 105 mg/dL (83-110); Potassium 3.8 mmol/L (3.5-5.1); Sodium 139 mmol/L (136-145)
--- NOTE | 2020-01-22 07:49 | CON ---
DATE OF CONSULTATION: 01/21/2020 ADDENDUM: INDICATION FOR CONSULTATION: As above for chest pain. HISTORY OF PRESENT ILLNESS: This is a very pleasant, but unfortunate 79-year-old female underwent bypass surgery several years ago and since that time, she has been experiencing chest pain. This has been ongoing for years. She is not being controlled by medical management. She has had actually also several stents placed. The pain she describes as being something very hard. She described a hot stabbing sword, which is in the lower sternal area, which radiates sometimes to the shoulder and down the arm. The pain usually occurs at uncertain times. It is not related to activity. She can get it when she is sitting and resting. She has had no EKG changes and enzymes remain negative. I would suspect that should she have any significant coronary artery disease or ischemic events that the cardiac enzymes would elevate with pressure and pain that she describes as being as much as 9/10, which may last for hours. It does not appear to be cardiac at all. She is on pain medications. She has had a trial of a TENS device and still did not have any significant relief of the pain. She is not a good candidate for ablation of the nerves. Thus, pain medications have been advised. She continues on these medications. I have suggested that perhaps we can even try fentanyl patch to see whether or not this helps with the pain comes and goes. At this time when I am seeing her, she is not actually having any pain, but she says she feels some uncomfortable feeling like a twinge, like it might be coming up in the future. This is somewhat atypical obviously for coronary artery disease. For her past medical history, social history, family history, review of systems, medications, allergies, please refer the notes dictated by the physician orthodontic technician assistant Mireya Rosenberg. PHYSICAL EXAMINATION: GENERAL: Reveals a well-developed, well-nourished, very pleasant female, who is in no acute distress, and no pain at this time. VITAL SIGNS: Her blood pressure is 106/67, heart rate is 79 and regular, respiratory rate 16, she is afebrile. HEENT: Unremarkable. CHEST: Clear to auscultation. CARDIOVASCULAR: Revealed a regular rate and rhythm. Normal S1 and S2. There is no S3 or S4. There were no significant murmurs, heaves, thrills, bruits, or rubs. She has a well-healed midline surgical incision after median sternotomy. ABDOMEN: Obese with positive bowel sounds. EXTREMITIES: Show no clubbing, cyanosis, or edema. Pedal pulses are present. NEUROLOGIC: She appears to be fully intact. LABORATORY DATA: Unremarkable for any evidence of myocardial infarction. Troponin I is 0.01 and TSH remains normal. Her renal function is also normal. Hematologically, the WBC is low at 3.3, hemoglobin is 13.9, MCV was 105, she appears to have some degree of macrocytosis and monocytes were 10.2. IMPRESSION: 1. Atypical chest pain, which is likely noncardiac in nature. If the blood pressure remains stable, we can try low-dose of fentanyl patch. I have also suggested she might try acupuncture. She has actually tried this in the past, may or may not get relief. She is not a good candidate for TENS device apparently and is not a candidate for nerve ablation. We will continue to monitor her throughout the course of her hospitalization, but hopefully if she remains stable, can be discharged home tomorrow. She is to inform the nurse should she get any further chest discomfort, and we will see whether or not she will respond to fentanyl patch if she develops further chest pain. 2. Coronary artery disease. She does have small vessel disease, but this appears to be stable since there are no EKG changes. 3. Cardiomyopathy. Her last echocardiogram showed ejection fraction of 40% to 45%. She also has had an automatic implantable cardioverter-defibrillator implanted. This also remains stable. She has had no shocks from the device. We will continue to follow her. Hopefully, she can be discharged home tomorrow. Job ID: [id number]
[2020-01-22] MEDS: Ascorbic Acid 500 mg Chewable Tablet PO SCH (08:57)
[2020-01-22] MEDS: Furosemide 40 MG TAB PO SCH (08:58)
[2020-01-22] MEDS: Enoxaparin Sodium 40 MG/0.4 ML SYRINGE SC SCH (08:58)
[2020-01-22] MEDS: Nitroglycerin 0.4mg/Hour PATCH TD SCH (08:58)
[2020-01-22] MEDS: Clopidogrel Bisulfate 75 MG TAB PO SCH (08:58)
[2020-01-22] MEDS: Potassium Chloride 10 MEQ TAB PO SCH (08:59)
[2020-01-22] MEDS: traMADol HCl 50 MG TAB PO SCH (09:00)
--- NOTE | 2020-01-22 09:40 | PDOC.FM ---
- Subjective Subjective: Had another episode of chest pain overnight, requested GI cocktail but this did not improve her symptoms. She continues to have chest pain, SOB, diaphoresis this morning although it has improved to 4/10 from 8/10 overnight. No events on tele and EKG relatively unchanged. - Objective Vital Signs & Weight: Vital Signs (12 hours) Temp Pulse Resp BP Pulse Ox 01/22/20 07:59 99 01/22/20 07:14 97.6 F 69 13 110/56 L 98 01/22/20 04:15 97.8 F 69 19 136/69 99 01/22/20 00:43 96 01/21/20 23:37 98.3 F 74 12 116/56 L 96 Weight Weight 83.234 kg I&O: 01/21/20 01/22/20 01/23/20 06:59 06:59 06:59 Intake Total 530 1610 Output Total 480 1630 Balance 50 -20 Result Diagrams: 01/20/20 14:39 01/22/20 06:00 EKG Reviewed by me: Yes (SR, occ PVCs, rate 60s on tele) Phys Exam - Physical Examination Constitutional: NAD HEENT: moist MMs Respiratory: clear to auscultation bilateral Cardiovascular: RRR, no significant murmur Gastrointestinal: soft, positive bowel sounds Musculoskeletal: pulses present trace edema Neurological: non-focal, moves all 4 limbs Psychiatric: normal affect, A&O x 3 Skin: no rash Dx/Plan - Plan Plan: Atypical chest pain, ACS r/o Recurrence of chest pain overnight last night. No changes noted on tele, repeat EKG wnl, and troponin negative x 3. Pain not relieved by nitro per patient. Pain not improved with GI cocktail, ativan, atarax. She continues to have intermittent pain. Extensive cardiac history. - Cardiology consulted, appreciate recommendations - Will try fentanyl patch today as recommended by cardiology, monitor BP with this - Continue home medications Heart Failure without acute exacerbation Last echo as above. - will continue home medications - continue to monitor Lower extremity edema Pitting edema without pain or erythema, L > R. Likely 2/2 chronic venous insufficiency s/p surgical vein harvesting - US r/o DVT was negative Addendum - Attending - Attending Attestation Date/Time: 01/22/20 [id number] I personally evaluated the patient and discussed the management with Dr. Rehg. I agree with the History, Examination, Assessment and Plan documented above with any addition or exceptions noted below. Patient was chest pain free when I saw her this morning and was talking about going home. Shortly after my visit she developed chest pain again. EKG was obtained which to me did not look significantly changed from her several during this hospitalization. Dr. Linares was able to discuss this with Dr. Mtaos who was in agreement but recommended we try a fentanyl patch for her pain. Will continue to monitor.
[2020-01-22] MEDS ORDERED: Communication Order-Pharmacy FS SCH (21:00)
[2020-01-22] MEDS: Aspirin 81 mg Enteric Coated Tablet PO SCH (21:09)
[2020-01-22] MEDS: Atorvastatin Calcium 40 MG TAB PO SCH (21:09)
[2020-01-23 04:59] LABS: Anion Gap 13 mmol/L (10-20); BUN (Urea Nitrogen) 14 mg/dL (9.8-20.1); Calc. Creatinine Clearance 77 mL/min (70-130); Calcium 9.2 mg/dL (7.8-10.44); Carbon Dioxide 26 mmol/L (23-31); Chloride 104 mmol/L (98-107); Estimated GFR-MDRD 74; Glucose 106 mg/dL (83-110); Potassium 3.8 mmol/L (3.5-5.1); Sodium 139 mmol/L (136-145)
--- NOTE | 2020-01-23 06:18 | PDOC.FM ---
- Subjective Subjective: No acute overnight events. Reports she took fentanyl patch off around 2100 last night because it was making her feel confused and agitated. Since removal of the patch, she has felt much better. She slept well last night and has had no further episodes of chest pain. Denies SOB, diaphoresis this AM as well. No new complaints. - Objective Vital Signs & Weight: Vital Signs (12 hours) Temp Pulse Resp BP Pulse Ox 01/23/20 03:16 97.9 F 73 12 121/62 97 01/22/20 20:00 98.4 F 76 18 128/67 96 Weight Weight 82.327 kg I&O: 01/21/20 01/22/20 01/23/20 06:59 06:59 06:59 Intake Total 530 1610 840 Output Total 480 1630 1900 Balance 50 -20 -1060 Result Diagrams: 01/20/20 14:39 01/23/20 04:09 EKG Reviewed by me: Yes (NSR tele) Phys Exam - Physical Examination Constitutional: NAD HEENT: moist MMs Respiratory: clear to auscultation bilateral Cardiovascular: RRR, no significant murmur Gastrointestinal: soft, positive bowel sounds Musculoskeletal: pulses present trace edema Neurological: non-focal, moves all 4 limbs Psychiatric: normal affect, A&O x 3 Skin: no rash Dx/Plan - Plan Plan: Atypical chest pain Extensive cardiac history, although cardiac workup during this admission has been negative. Serial troponins and EKGs have been negative. Reviewed patient case with Dr. Matos. Pain is chronic in nature since CABG a few years ago, it has been suggested this pain may be due to chronic nerve irritation post- operatively, but Dr. Matos does not believe she would be a good surgical candidate. - Cardiology consulted, has recommended fentanyl patch for further pain control - Home medications continued on admission; imdur has been held by cardiology team, will reach out to them to verify if this should be held indefinitely or resumed on discharge - Pursuing outpatient therapy including acupuncture has been recommended by cardiology, encouraged patient to pursue this therapy Heart Failure without acute exacerbation Last echo as above. - will continue home medications - continue to monitor Lower extremity edema Pitting edema without pain or erythema, L > R. Likely 2/2 chronic venous insufficiency s/p surgical vein harvesting - US r/o DVT was negative
[2020-01-23] MEDS: Potassium Chloride 10 MEQ TAB PO SCH (08:28)
[2020-01-23] MEDS: traMADol HCl 50 MG TAB PO SCH (08:29)
[2020-01-23] MEDS: Clopidogrel Bisulfate 75 MG TAB PO SCH (08:29)
[2020-01-23] MEDS: Ascorbic Acid 500 mg Chewable Tablet PO SCH (08:29)
[2020-01-23] MEDS: Furosemide 40 MG TAB PO SCH (08:30)
[2020-01-23] MEDS: Enoxaparin Sodium 40 MG/0.4 ML SYRINGE SC SCH (08:30)
[2020-01-23] MEDS: Nitroglycerin 0.4mg/Hour PATCH TD SCH (11:42)
--- NOTE | 2020-01-23 11:44 | PDOC.CPN ---
- Subjective Date: 01/23/20 Time: 11:42 Interval history: She is having a good day today. Currently pain free. - Review of Systems General: denies: fever/chills, weight/appetite/sleep changes, night sweats, fatigue Respiratory: denies: cough, congestion, shortness of breath, exercise intolerance Cardiovascular: denies: chest pain, palpitation, edema, paroxysmal nocturnal dyspnea, orthopnea Gastrointestinal: denies: nausea, vomiting, diarrhea, constipation, abd pain, GI bleeding Musculoskeletal: denies: pain, tenderness, stiffness, swelling, arthritis /arthralgias Neurological: denies: numbness, syncope, seizure, weakness - Objective Allergies/Adverse Reactions: Allergies Allergy/AdvReac Type Severity Reaction Status Date / Time hydroxychloroquine Allergy Verified 01/20/20 18:06 [From Plaquenil] leflunomide Allergy N/V/D, Verified 01/20/20 18:06 CONFUSION micropore tape Allergy Uncoded 01/20/20 18:06 Visit Medications: Current Medications Ascorbic Acid (Ascorbic Acid 500 Mg Chewable Tablet) 250 mg PO DAILY [facility] Last Admin: 01/23/20 08:29 Dose: 250 mg Documented by: Aspirin (Aspirin 81 Mg Enteric Coated Tablet) 81 mg PO [facility] Last Admin: 01/22/20 21:09 Dose: 81 mg Documented by: Atorvastatin Calcium (Atorvastatin Calcium 40 Mg Tab) 40 mg PO [facility] Last Admin: 01/22/20 21:09 Dose: 40 mg Documented by: Clopidogrel Bisulfate (Clopidogrel Bisulfate 75 Mg Tab) 75 mg PO QAM [facility] Last Admin: 01/23/20 08:29 Dose: 75 mg Documented by: Docusate Sodium (Docusate 100 Mg Cap) 100 mg PO DAILYPRN PRN PRN Reason: Constipation Last Admin: 01/21/20 16:56 Dose: 100 mg Documented by: Enoxaparin Sodium (Enoxaparin Sodium 40 Mg/0.4 Ml Syringe) 40 mg SC 0900 [facility] Last Admin: 01/23/20 08:30 Dose: 40 mg Documented by: Fentanyl (Fentanyl 12 Mcg/Hour Patch) 12 mcg TD Q3D [facility] Last Admin: 01/22/20 10:25 Dose: 12 mcg Documented by: Furosemide (Furosemide 40 Mg Tab) 40 mg PO DAILY [facility] Last Admin: 01/23/20 08:30 Dose: 40 mg Documented by: Miscellaneous Information (Communication Order-Pharmacy ) 1 each FS 2100 [facility] Last Admin: 01/22/20 21:21 Dose: Not Given Documented by: Nitroglycerin (Nitroglycerin 0.4 Mg Tab (25 Tab Bottle)) 0.4 mg SL Q5MIN PRN PRN Reason: Chest Pain Last Admin: 01/20/20 20:03 Dose: 0.4 mg Documented by: Nitroglycerin (Nitroglycerin 0.4mg/Hour Patch) 1 patch TD DAILY [facility] Last Admin: 01/22/20 08:58 Dose: 1 patch Documented by: Pantoprazole Sodium (Pantoprazole 40 Mg Tab) 40 mg PO DAILY [facility] Last Admin: 01/23/20 08:28 Dose: 40 mg Documented by: Potassium Chloride (Potassium Chloride 10 Meq Tab) 10 meq PO QAM [facility] Last Admin: 01/23/20 08:28 Dose: 10 meq Documented by: Ranolazine (Ranolazine 500 Mg Tab) 1,000 mg PO BID [facility] Last Admin: 01/23/20 08:28 Dose: 1,000 mg Documented by: Sodium Chloride (Flush - Normal Saline 10 Ml Syringe) 10 ml IVF PRN PRN PRN Reason: Saline Flush Last Admin: 01/21/20 19:36 Dose: 10 ml Documented by: Tramadol HCl (Tramadol Hcl 50 Mg Tab) 50 mg PO DAILY [facility] Last Admin: 01/23/20 08:29 Dose: Not Given Documented by: Vital Signs & Weight: Vital Signs Temp Pulse Resp BP Pulse Ox 01/23/20 07:05 97.7 F 68 14 111/65 96 01/23/20 03:16 97.9 F 73 12 121/62 97 Weight 181 lb 8 oz - Physical Exam General: alert & oriented x3 HEENT: mucus membranes moist Neck: supple neck Cardiac: regular rate and rhythm Lungs: normal breath sounds Neuro: grossly intact Abdomen: active bowel sounds Extremities: other: (Trace edema) Skin: clear Musculoskeletal: no pain - Labs Result Diagrams: 01/20/20 14:39 01/23/20 04:09 Troponin/CKMB Troponin I Less than 0.010 ng/mL (< 0.028) 01/21/20 00:45 - Telemetry Sinus rhythms and dysrhythmias: sinus rhythm - Assessment/Plan Assessment/Plan: 1. Chest pain, non cardiac, Chronic. 2. CAD s/p CABG, no ACS. 3. Ischemic CM EF at 40-45% 4. S/P AICD. PLAN: - May discharge home. - Continue home regimen. - Chest pain is chronic, no ACS. - Will try acupuncture as an outpatient. - Follow up in the office in 1 month. - Will sign off. Please call with any questions.
--- NOTE | 2020-01-23 13:53 | PRG ---
DATE OF SERVICE: 01/23/2020 Ms. Villafana is resting quietly in bed, in no acute distress. She is alert, oriented x3. Given that her chest pain at time lasted hours occurred at rest and was unassociated with EKG changes or elevation in her troponins, Dr. Matos of the Cardiology Service feels this is likely not angina. They recommended other modalities for pain control. The patient was also seen today by her personal r and d lab technician, Dr. Shaquille Cheatham, who believes that her chest pain is chronic and does not represent a current ACS. He has stated that she is good for discharge home. Job ID: [id number]
[2020-01-23 15:52] VITALS: BP 115/60; TEMP 98.4
--- NOTE | 2020-01-23 17:31 | EKG ---
Test Reason : CP Blood Pressure : / mmHG Vent. Rate : 076 BPM Atrial Rate : 076 BPM P-R Int : 170 ms QRS Dur : 104 ms QT Int : 400 ms P-R-T Axes : 035 -14 100 degrees QTc Int : 450 ms Normal sinus rhythm Inferior infarct (cited on or before 23-NOV-2019) Anterior ST elevation cannot r/o acute anterior NM Abnormal ECG When compared with ECG of 20-JAN-2020 14:44, (Unconfirmed) Questionable change in initial forces of Inferior leads Confirmed by DR. Naseem PAZ (3) on 01/23/2020 5:30:38 PM Referred By: MANJU JACOB Confirmed By:DR. Naseem PAZ
--- NOTE | 2020-01-23 17:33 | EKG ---
Test Reason : CP Blood Pressure : / mmHG Vent. Rate : 066 BPM Atrial Rate : 066 BPM P-R Int : 172 ms QRS Dur : 104 ms QT Int : 400 ms P-R-T Axes : 033 033 124 degrees QTc Int : 419 ms Normal sinus rhythm Possible Lateral infarct , age undetermined Nonspecific ST-T changes inferiorly also Abnormal ECG When compared with ECG of 23-NOV-2019 13:53, Borderline criteria for Lateral infarct are now Present Criteria for Inferior infarct are no longer Present Nonspecific T wave abnormality now evident in Inferior leads Confirmed by DR. Naseem PAZ (3) on 01/23/2020 5:33:15 PM Referred By: MANJU JACOB Confirmed By:DR. Naseem PAZ
--- NOTE | 2020-01-23 17:37 | EKG ---
Test Reason : Blood Pressure : / mmHG Vent. Rate : 070 BPM Atrial Rate : 070 BPM P-R Int : 174 ms QRS Dur : 106 ms QT Int : 412 ms P-R-T Axes : 029 -17 097 degrees QTc Int : 444 ms Normal sinus rhythm Inferior infarct , age undetermined Anterior infarct (cited on or before 20-JAN-2020) Abnormal ECG When compared with ECG of 20-JAN-2020 20:33, (Unconfirmed) Inferior infarct is now Present Questionable change in initial forces of Anterolateral leads Confirmed by DR. Naseem PAZ (3) on 01/23/2020 5:37:19 PM Referred By: LIGHT Confirmed By:DR. Naseem PAZ
--- NOTE | 2020-01-24 12:00 | DIS ---
DATE OF ADMISSION: 01/22/2020 DATE OF DISCHARGE: 01/23/2020 RESIDENT: Rossy Linares DO ADMITTING ATTENDING: Reed Lawrence MD DISCHARGE ATTENDING: Homer Alarcon MD CONSULT: Cardiology. PROCEDURE: None. PRIMARY DIAGNOSIS: Chronic angina. SECONDARY DIAGNOSES: Heart failure and coronary artery disease, status post automatic implantable cardioverter-defibrillator. DISCHARGE MEDICATIONS: 1. Restasis one drop each eye b.i.d. 2. Ranexa 1000 mg p.o. b.i.d. 3. Aspirin 81 mg p.o. at bedtime. 4. Atorvastatin 80 mg p.o. at bedtime. 5. Furosemide 40 mg p.o. daily. 6. Potassium chloride 10 mEq p.o. q.a.m. 7. Plavix 75 mg p.o. q.a.m. 8. Nitrostat 0.4 mg sublingual q.5 minutes p.r.n. 9. Tramadol 1 tablet 50 mg p.o. p.r.n. 10. Vitamin C 250 mg p.o. daily. 11. Protonix 40 mg p.o. daily. 12. Isosorbide mononitrate 15 mg p.o. daily. DISCONTINUED MEDICATIONS: None. HOSPITAL COURSE: This is an 79-year-old female with past medical history of coronary artery disease status post multivessel CABG and several stents, who presented for worsening of her chronic chest pain. She has been struggling with chronic chest pain for multiple years ever since she had her CABG, described as sharp or pressure-like pain that spreads across her chest. She was admitted for an acute coronary syndrome rule out, given her history of symptoms. However, her workup was largely negative. She continued to have episodes of chest pain throughout her admission and as such, had multiple rounds of troponins and EKGs, all of which were negative for any cardiac cause of her pain. She was also treated with GI cocktail, which did not improve her pain and Ativan, which did not improve her pain, suggesting the anxiety and reflux are not the cause of this chronic pain. Due to her history and symptoms, Cardiology was consulted and recommended trying a fentanyl patch for treatment of her pain. The patient was given a fentanyl patch and I ended up removing it because it made her feel anxious, agitated, and confused. However, after removing the fentanyl patch, she was able to sleep well, had no further episodes of chest pain and was ultimately discharged to home with no changes to her medications and instructions to follow up with her hand buffer. DISPOSITION: Stable. DISCHARGE INSTRUCTIONS: 1. Location: Home. 2. Diet: Heart healthy. 3. Activity: As tolerated. 4. Followup with the PCP and hand buffer within the next 1 to 2 weeks. Job ID: [id number]
== END 2020-01-23 15:45 | disposition home or self-care (01) | DRG 303 ==
LOC: ERS 13:39 → 2SW 16:31 → OBSVTOIN 01-22 10:49 → 2NO 01-22 15:12
PROVIDERS: ADMIT Student in an Organized Health Care Education/Training Program; ATTEND Student in an Organized Health Care Education/Training Program
DX: I25.110 Atherosclerotic heart disease of native coronary artery with unstable angina pectoris (principal); I50.22 Chronic systolic (congestive) heart failure; I87.2 Venous insufficiency (chronic) (peripheral); M06.9 Rheumatoid arthritis, unspecified; I25.5 Ischemic cardiomyopathy; Z95.1 Presence of aortocoronary bypass graft; Z88.8 Allergy status to other drugs, medicaments and biological substances; Z79.82 Long term (current) use of aspirin; Z79.899 Other long term (current) drug therapy; Z95.810 Presence of automatic (implantable) cardiac defibrillator; Z90.710 Acquired absence of both cervix and uterus; Z90.49 Acquired absence of other specified parts of digestive tract
CPT/HCPCS: 36415; 71045; 80048; 80053; 83735; 84100; 84443; 84484; 85025; 93005; 93010; 94760; 96372; G0378; J1650

== ENCOUNTER 2022-06-04 06:10 | Day surgery (SDC) | payer MEDICARE, BC ==
[2022-06-03 13:16] VITALS: BMI 33.8
[2022-06-04] MEDS ORDERED: Lidocaine 1% (PF) 30 ML VIAL ONE (08:16)
[2022-06-04] MEDS ORDERED: Heparin 10,000 UNITS/ 10 ML VIAL ONE (08:16)
[2022-06-04] MEDS ORDERED: Midazolam HCl 2 mg/2 ml Vial ONE (08:52)
[2022-06-04] MEDS ORDERED: FENTANYL 50 MCG/ML 1 ML VIAL ONE (08:52)
== END 2022-06-04 12:43 | disposition home or self-care (01) ==
LOC: CCL 06:10
PROVIDERS: ATTEND Internal Medicine Cardiovascular Disease
PROC: 4A023N7 Measurement of Cardiac Sampling and Pressure, Left Heart, Percutaneous Approach (ICD-10-PCS; principal; 2022-06-04)
PROC: B2111ZZ Fluoroscopy of Multiple Coronary Arteries using Low Osmolar Contrast (ICD-10-PCS; 2022-06-04)
PROC: B2181ZZ Fluoroscopy of Left Internal Mammary Bypass Graft using Low Osmolar Contrast (ICD-10-PCS; 2022-06-04)
PROC: B2131ZZ Fluoroscopy of Multiple Coronary Artery Bypass Grafts using Low Osmolar Contrast (ICD-10-PCS; 2022-06-04)
DX: I25.118 Atherosclerotic heart disease of native coronary artery with other forms of angina pectoris (principal); I25.82 Chronic total occlusion of coronary artery; I25.5 Ischemic cardiomyopathy; M06.9 Rheumatoid arthritis, unspecified; E78.5 Hyperlipidemia, unspecified; I25.2 Old myocardial infarction; Z79.02 Long term (current) use of antithrombotics/antiplatelets; Z79.82 Long term (current) use of aspirin; Z79.899 Other long term (current) drug therapy; Z88.8 Allergy status to other drugs, medicaments and biological substances; Z91.048 Other nonmedicinal substance allergy status; Z95.1 Presence of aortocoronary bypass graft; Z95.5 Presence of coronary angioplasty implant and graft
CPT/HCPCS: 93459; 99152; C1769; J1644; J2001; J2250; J3010